=== PATIENT | male | born 1975 | race Caucasian/White ===

== ENCOUNTER 2024-12-31 11:07 | Inpatient (IN) | payer SELFPAY ==
[~2024-12-31] VITALS: Ht 182.9 cm; Wt 108.0 kg
[2024-12-31 11:37] LABS: IMMATURE GRANULOCYTE ABSOLUTE 0.06 K/uL (0-1); NUCLEATED RED BLOOD CELLS 0.0 % (0.0-0.19); PLATELET COUNT (AUTO) 226 K/uL (130-400); RED BLOOD CELL COUNT(AUTO) 5.77 MIL/uL (4.50-6.20); RED CELL DISTRIBUTION WIDTH 11.9 % (11.0-15.5); WHITE BLOOD COUNT (AUTO) 10.4 K/uL (4.8-10.8)
[2024-12-31 11:45] LABS: INR 1.03 (0.85-1.15)
--- NOTE | 2024-12-31 11:48 | HMCIMG ---
CHEST 1VW REASON: sob COMPARISON: None. FINDINGS: Single view of the chest was obtained. Lungs are clear. Heart size is normal. There is no pulmonary vascular congestion. Mediastinum and bony thorax appear unremarkable. IMPRESSION: 1. Normal single view chest x-ray.
[2024-12-31] MEDS: 0.9%NACL 1000ML 1,000 ML IV ONE (12:12)
[2024-12-31 12:39] LABS: CREATININE 1.2 mg/dL (0.5-1.3); GLOMERULAR FILTR. RATE CALC 74.0 mL/min (>90); GLUCOSE,RANDOM 140.0 mg/dL (70-105); SODIUM SERUM 139.0 mmol/L (136-145); UREA NITROGEN, BLOOD 12.0 mg/dL (7-18)
[2024-12-31 12:44] LABS: CREATINE KINASE, TOTAL 38.0 U/L (21-232)
--- NOTE | 2024-12-31 13:17 | ERN ---
General Chief Complaint: Shortness of Breath Stated Complaint: SOB Time Seen by MD: 11:22 Time Seen by Midlevel: 11:22 Source: patient History of Present Illness Initial Comments With the patient is a 49-year-old male with a past medical history of anxiety presenting to the emergency department for evaluation of shortness of the breath that has been ongoing for the last several days. Symptoms are worse when he lies flat. He also reports palpitations. Denies any history of atrial fibrillation, coronary artery disease, or hypertension. Allergies: Coded Allergies: Unable to Assess (Unverified Allergy, Unknown, 12/31/24) Past Medical History Past Medical History: No Pertinent History Past Surgical History: None ROS Dictation CONSTITUTIONAL: Negative except for HPI HEAD/FACE: Negative except for HPI EENT: Negative except for HPI RESPIRATORY: Negative except for HPI GASTROINTESTINAL/ABDOMINAL: Negative except for HPI GENITOURINARY: Negative except for HPI MUSCULOSKELETAL: Negative except for HPI INTEGUMENTARY: Negative except for HPI NEUROLOGICAL/PSYCH: Negative except for HPI HEMATOLOGIC/LYMPHATIC: Negative except for HPI All Systems Negative, Except as noted above. 13 point review of systems assessed and all negative except for above. Physical Exam Physical Exam Dictation Vital Signs reviewed General Appearance: Alert, oriented x 3, no acute distress, well developed, nourished. Head and Face: non-traumatic. Eyes: PERRL, pink conjunctivas, eyelid no trauma, anterior chamber with arcus senilis. Ears: Pinnas intact and no signs of trauma or erythema ear canals clear and no discharge TM no erythema Nose: No discharge, no bleeding. Oropharynx: Mouth normal, tongue pink, pharynx clear,no erythema, tonsils no exudates, no abscesses noted, mucous membrane moist Neck: Supple, non-tender, no thyromegaly, no masses, no JVD, no bruits Breast:Deferred Chest:No tenderness, no crepitus, no paradoxical movement, no retractions Lungs:Clear, well-ventilated, symmetric, no rales, no wheezing, no rhonchi, no stridor, good breath sounds bilaterally Heart: Irregularly irregular, no murmur, no gallops Vascular: no peripheral edema, Abdomen: Soft, positive bowel sounds, nondistended, no guarding, nontender, no rebound, no masses no hepatomegaly, no splenomegaly, no Mccarthy's sign, no hernias. Rectal: Deferred Genital: Deferred Neurological: Normal speech, motor function intact, sensory function intact Musculoskeletal: Neck nontender, full range of motion, back nontender, full range of motion, Extremities: nontender, full range of motion Skin: Color pink, dry, no turgor, no rash, no lacerations, no abrasions, no contusions. Lymphatic: Deferred Results Laboratory and Microbiology Lab and Micro Result Laboratory Tests Test 12/31/24 11:25 White Blood Count 10.4 K/uL (4.8-10.8) Red Blood Count 5.77 MIL/uL (4.50-6.20) Hemoglobin 19.2 g/dL (14.0-18.0) H Hematocrit 53.6 % (42-54) Mean Corpuscular Volume 92.9 fL (79-99) Mean Corpuscular Hemoglobin 33.3 pg (27.0-33.0) H Mean Corpuscular Hemoglobin Concent 35.8 g/dL (32.0-36.0) Red Cell Distribution Width 11.9 % (11.0-15.5) Platelet Count 226 K/uL (130-400) Mean Platelet Volume 10.8 fL (7.5-10.5) H Immature Granulocyte % (Auto) 0.6 % (0-1) Neutrophils (%) (Auto) 65.2 % (40.0-77.0) Lymphocytes (%) (Auto) 21.8 % (21.0-51.0) Monocytes (%) (Auto) 9.8 % (3.0-13.0) Eosinophils (%) (Auto) 1.4 % (0.0-8.0) Basophils (%) (Auto) 1.2 % (0.0-5.0) Neutrophils # (Auto) 6.8 K/uL (1.8-7.7) Lymphocytes # (Auto) 2.3 K/uL (1.0-4.8) Monocytes # (Auto) 1.0 K/uL (0.1-1.0) Eosinophils # (Auto) 0.15 K/uL (0.00-0.70) Basophils # (Auto) 0.12 K/uL (0.00-0.20) Absolute Immature Granulocyte (auto 0.06 K/uL (0-1) Nucleated Red Blood Cells 0.0 % (0.0-0.19) Prothrombin Time 10.9 SEC (9.6-11.6) Prothromb Time International Ratio 1.03 (0.85-1.15) Activated Partial Thromboplast Time 27.1 SEC (26.3-35.5) Sodium Level 139 mmol/L (136-145) Potassium Level 3.8 mmol/L (3.5-5.1) Chloride Level 102 mmol/L (101-111) Carbon Dioxide Level 27 mmol/L (21-32) Blood Urea Nitrogen 12 mg/dL (7-18) Creatinine 1.2 mg/dL (0.5-1.3) Glomerular Filtration Rate Calc 74 mL/min (>90) Random Glucose 140 mg/dL (70-105) H Total Calcium 8.9 mg/dL (8.5-10.1) Magnesium Level 2.20 mg/dL (1.80-2.40) Total Creatine Kinase 38 U/L (21-232) Troponin I High Sensitivity 105 ng/L (4-75) *H B-Type Natriuretic Peptide 422 pg/mL (0-100) H Labs Reviewed?: Yes MDM MDM: Differential diagnosis: Acute coronary syndrome, pulmonary edema, fluid overload Rationale: Tests considered and ordered secondary to shared decision making include: Previous outside records reviewed: Old ER visits. Risk of complication and/or morbidity or mortality of patient management: None Medications-Per medication reconciliation Need for hospitalization: Patient does meet criteria for hospitalization. Need for emergency major/minor surgery: No There are no social concerns with this patient. Prescription drug management Prescriptions will include symptomatic care Patient's prior external medical records from other ER visits were reviewed by me as indicated. Prior testing and results from previous visits were reviewed. Prior tests were taken into account with medical decision making and resource utilization, independent historian/historians were used to obtain complete medical history. I independently interpreted the test that were performed, results were reviewed by me and considered findings on radiology if ordered. Medical management and examination interpretation discussions were had by me with other qualified healthcare professionals as indicated for the patient's care. ED Course Orders Procedure Category Date Status Time 12 Lead Ekg Tracing- EKG 12/31/24 Complete Technical 11:21 Cbc With Differential LAB 12/31/24 Complete 11:21 Basic Metabolic Panel LAB 12/31/24 Complete 11:21 B-Type Natriuretic LAB 12/31/24 Complete Peptide 11:21 Creatine Kinase, Total LAB 12/31/24 Complete 11:21 Magnesium LAB 12/31/24 Complete 11:21 Troponin I High LAB 12/31/24 Complete Sensitivity 11:21 Pt And Ptt LAB 12/31/24 Complete 11:21 Chest 1vw RAD 12/31/24 Resulted 11:21 Metoprolol Tartrate PHA 12/31/24 Complete (Lopressor) 12:00 0.9%Nacl 1000ml (Ns PHA 12/31/24 Complete 1000ml) 12:00 Aspirin 325mg Tab PHA 12/31/24 Complete (Aspirin 325mg Tab) 13:00 Current Medications Medications (Trade) Dose Ordered Sig/Nallely Route PRN Reason Start Time Stop Time Status Last Admin Dose Admin Aspirin (Aspirin 325mg Tab) 325 mg ONCE ONCE PO 12/31/24 13:00 12/31/24 13:01 DC Metoprolol Tartrate (loprESSOR) 5 mg ONCE ONCE IV 12/31/24 12:00 12/31/24 12:01 DC 12/31/24 12:12 Sodium Chloride 1,000 ml @ 0 mls/hr ONCE ONCE IV 12/31/24 12:00 12/31/24 12:01 DC 12/31/24 12:12 Vital Signs Date Time Temp Pulse Resp B/P (MAP) Pulse Ox O2 Delivery O2 Flow Rate FiO2 12/31/24 14:00 103 20 116/58 98 Room Air* 0 12/31/24 12:12 135 127/98 12/31/24 11:29 75 20 133/77 98 Room Air* 0 12/31/24 11:10 98.1 69 18 155/92 95 [place] [id number] IMAGING REPORT Signed PATIENT: MERCY PIERSON MR#: [id number] : 1975 SEX: M AGE: 49 LOCATION: [facility] ORDER 22 STATUS: REG ER REPORT#: [id number] SERVICE 112 REASON: sob ORDERING PHYSICIAN: CRYSTAL MCGREGOR PROCEDURE: CXR1VW - CHEST 1VW CHEST 1VW REASON: sob COMPARISON: None. FINDINGS: Single view of the chest was obtained. Lungs are clear. Heart size is normal. There is no pulmonary vascular congestion. Mediastinum and bony thorax appear unremarkable. IMPRESSION: 1. Normal single view chest x-ray. DICTATED BY: ELLIOT FLOOD MD DATE: 12/31/24 114 ELECTRONICALLY SIGNED BY: ELLIOT FLOOD MD DATE: 12/31/24 1148 HEART Score Response (Comments) Value History: Low suspicion (0) 0 EKG: Normal 0 Age: 45-65yrs (+1) 1 Risk Factors: No known risk factors (0) 0 Initial Troponin: Normal limit (0) 0 HEART Score Risk: Low Risk for MACE (1-3) Total 1 DX & DISP Disposition: Inpatient Departure Impression: Primary Impression: New onset a-fib Additional Impression: Atrial fibrillation with RVR Condition: Stable Referrals: SELF,REFERRAL (PCP) I have reviewed the case, and I agree with, Diagnosis and Plan I performed the substantive portion of the visit. I have reviewed and personally made and approve the management plan that is documented in the note by myself or the MIREILLE. I acknowledge for responsibility for the patient's management plan. CRYSTAL MCGREGOR Dec 31, 2024 13:17
--- NOTE | 2024-12-31 14:02 | EKG ---
[facility] Test Date: 2024-12-31 Test Time: 11:37:38 Pat Name: MERCY PIERSON Department: ED Room: 221 Gender: M Manager Erp: [id number] : 1975 Requested By: CRYSTAL MCGREGOR Order Number: [id number] Reading MD: Trent Jenkins Measurements Intervals [place] Rate: 136 P: 0 AR: 0 QRS: -68 QRSD: 93 T: 0 QT: 339 QTc: 510 Interpretive Statements Atrial fibrillation Inferior infarct, old Prolonged QT interval No previous ECG available for comparison Electronically Signed On 01-01-2025 02:17:55 CDT by Trent Jenkins Please click the below link to view image of tracing.
[2024-12-31] MEDS: ASPIRIN 325MG TAB PO ONE (14:27)
[2024-12-31] MEDS ORDERED: PHARMACY COMMUNICATION MISC PRN (14:30)
[2024-12-31 15:26] LABS: AMPHET/METH SCREEN,URINE NEGATIVE (NEGATIVE); BARBITURATE SCREEN, URINE NEGATIVE (NEGATIVE); CANNABINOID SCREEN,URINE POSITIVE (NEGATIVE); COCAINE SCREEN,URINE POSITIVE (NEGATIVE)
[2024-12-31] MEDS: PoTASSium chloRIDE 20MEQ ER 20 MEQ ERTAB PO SCH (15:30)
--- NOTE | 2024-12-31 15:38 | CONS ---
[facility] CONSULTATION REPORT Date Patient Seen: Dec 31, 2024 Time of Visit: 15:14 Requesting Physician: Shabbir Crowder MD Reason for Consultation: Afib RVR History of Present Illness: This is a 49-year-old white male with a past medical history of alcohol abuse, tobacco abuse and marijuana use, probable sleep apnea and otherwise no other medical history (no outpatient PCP and takes only vitamin supplements), presented to the emergency department with a 1 day history of palpitations with associated orthopnea, PND, mild dyspnea and anxiety. 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 Throughout the night, he had difficulties sleeping due to his symptoms. In the morning, he noted that he was having palpitations and worsening anxiety. He took an aspirin and a calming supplement without any improvement in his symptoms, symptoms persisted throughout the day. He decided to present to the emergency department earlier this morning due to persistent symptoms. In the emergency department, he was found to be in atrial fibrillation with rapid ventricular response rate of 136 beats per minute and evidence of possible prior old inferior infarct with QS complexes in leads 3 and AVF. He admits to heavy alcohol use, difficulty quantifying other than a lot. On 12/29/2024 he admits to drinking about 5 beers throughout the day and 1 glass of whiskey. He denies any cocaine use and although he does occasionally use marijuana, he has not use marijuana recently. In the emergency department, Labs were remarkable for a WBC of 10.4, hemoglobin 19.2, hematocrit of 53.6 and a platelet count of 226. D-dimer normal at 456, sodium 139, potassium 3.8, BUN 12 and creatinine of 1.2, magnesium of 2.2. BNP of 422, I initial high sensitivity cardiac troponin of 105, hemoglobin A1c of 7.2. His chest x-ray demonstrated borderline cardiomegaly and pulmonary vascular congestion changes. Past Medical History: Alcohol abuse Tobacco abuse Intermittent marijuana use Past Surgical History: None Family History: Unknown Social History: Patient is , lives alone. Has been independent Habits: Longstanding tobacco use since age 15 currently 1 pack per day Admits to consuming alcohol beer and whiskey, difficult to quantify only reporting drinks a lot Occasional marijuana use and denies cocaine use Home Meds: No prescription drugs Takes PPI, multivitamin men's 50+, [place] 3 and turmeric Review of Systems: CONST: No fever, fatigue, or weight changes. EYES: No recent vision problems. ENT: No congestion, ear pain, or sore throat. C/V: Palpitations, orthopnea, PND. Dyspnea. No chest pain. RESP: No cough, congestion, wheezing or shortness of breath. GI: No abdominal pain, nausea, vomiting, constipation, or diarrhea. : No incontinence or dysuria. SKIN: No rash. NEURO: No headache, focal numbness or weakness, dizziness, or seizures. PSYCH: No history of depression or anxiety HEME: No abnormal bruising or bleeding. LYMPH: No swollen glands. Physical Examination: GENERAL: No acute distress. HEAD: Normal with no signs of head trauma. EYES: PERRLA, EOMI, conjunctiva and sclera normal. ENT: Hearing grossly intact, normal oropharynx. NECK: Supple without JVD. There is no tenderness, lymphadenopathy, or masses. No thyromegaly. Normal carotid upstrokes without bruits. LUNGS: Clear breath sounds bilaterally. No wheezes, or rhonchi. HEART: Irregularly irregular underlying rhythm with moderate to rapid ventricular response of atrial fibrillation. Normal S1 and S2 without murmurs, gallop or rub. VASC: Peripheral pulses +2 bilaterally. ABD: Bowel sounds normal, soft, nontender, no masses, no organomegaly. No audible bruits. : Not examined LYMPH: No lymphadenopathy noted. EXT: No clubbing, cyanosis or edema. SKIN: No rashes or lesions noted. NEURO: Awake, alert, and oriented x3. No focal sensory or strength deficits noted. Vital Signs (last 8hr) Date Time Temp Pulse Resp B/P (MAP) Pulse Ox O2 Delivery O2 Flow Rate FiO2 12/31/24 14:00 103 20 116/58 98 Room Air* 0 21 12/31/24 12:12 135 127/98 12/31/24 11:29 75 20 133/77 98 Room Air* 0 21 12/31/24 11:10 98.1 69 18 155/92 95 Room Air Laboratory: Hematology Labs: Test 12/31/24 11:25 Range/Units White Blood Count 10.4 4.8-10.8 K/uL Red Blood Count 5.77 4.50-6.20 MIL/uL Hemoglobin 19.2 H 14.0-18.0 g/dL Hematocrit 53.6 42-54 % Mean Corpuscular Volume 92.9 79-99 fL Mean Corpuscular Hemoglobin 33.3 H 27.0-33.0 pg Mean Corpuscular Hemoglobin Concent 35.8 32.0-36.0 g/dL Red Cell Distribution Width 11.9 11.0-15.5 % Platelet Count 226 130-400 K/uL Mean Platelet Volume 10.8 H 7.5-10.5 fL Immature Granulocyte % (Auto) 0.6 0-1 % Neutrophils (%) (Auto) 65.2 40.0-77.0 % Lymphocytes (%) (Auto) 21.8 21.0-51.0 % Monocytes (%) (Auto) 9.8 3.0-13.0 % Eosinophils (%) (Auto) 1.4 0.0-8.0 % Basophils (%) (Auto) 1.2 0.0-5.0 % Neutrophils # (Auto) 6.8 1.8-7.7 K/uL Lymphocytes # (Auto) 2.3 1.0-4.8 K/uL Monocytes # (Auto) 1.0 0.1-1.0 K/uL Eosinophils # (Auto) 0.15 0.00-0.70 K/uL Basophils # (Auto) 0.12 0.00-0.20 K/uL Absolute Immature Granulocyte (auto 0.06 0-1 K/uL Nucleated Red Blood Cells 0.0 0.0-0.19 % Chemistry Labs: Test 12/31/24 11:25 Range/Units Sodium Level 139 136-145 mmol/L Potassium Level 3.8 3.5-5.1 mmol/L Chloride Level 102 101-111 mmol/L Carbon Dioxide Level 27 21-32 mmol/L Blood Urea Nitrogen 12 7-18 mg/dL Creatinine 1.2 0.5-1.3 mg/dL Glomerular Filtration Rate Calc 74 >90 mL/min Random Glucose 140 H 70-105 mg/dL Hemoglobin A1c 7.2 H 4.0-6.0 % Estimated Average Glucose (eAG) 160 H 70-126 mg/dL Total Calcium 8.9 8.5-10.1 mg/dL Magnesium Level 2.20 1.80-2.40 mg/dL Total Creatine Kinase 38 21-232 U/L Troponin I High Sensitivity 105 *H 4-75 ng/L B-Type Natriuretic Peptide 422 H 0-100 pg/mL Procalcitonin < 0.05 L 0.05-0.5 ng/mL Coagulation Labs: Test 12/31/24 11:25 Range/Units Prothrombin Time 10.9 9.6-11.6 SEC Prothromb Time International Ratio 1.03 0.85-1.15 Activated Partial Thromboplast Time 27.1 26.3-35.5 SEC D-Dimer Quantitative (PE/DVT) 456 0-500 ng/mL Diagnostics / Radiology: Admission chest x-ray demonstrates borderline cardiomegaly and pulmonary vascular congestion changes 2D echocardiogram is pending Impression and Plan: New onset Atrial fibrillation with rapid ventricular response: Consider "Holiday heart syndrome" in this patient with heavy EtOH abuse [id number] stroke risk score of 1 (diabetes newly diagnosed): -continue with metoprolol tartrate 25 mg p.o. t.i.d. (chronic beta-blake therapy is generally considered safe in patients who are chronic cocaine abuser as particularly those with heart failure with multiple study showing no increase in adverse cardiovascular outcomes. Avoid beta-blockers in the setting of acute cocaine intoxication due to the risk of unopposed alpha adrenergic stimulation and coronary vasospasm) -continue aspirin 81 mg p.o. daily -await results of 2D echocardiogram -patient does report prior history of loud snoring and apnea consistent with sleep apnea and will need further evaluation as an outpatient Acute presumed HFpEF: Elevated troponin to 105 in the setting of AFib with RVR and acute HFpEF: -begin furosemide 20 mg IV q.12 with potassium supplementation -begin metoprolol tartrate 25 mg p.o. t.i.d. for rate control of his atrial fibrillation -follow-up on 2D echocardiogram results and repeat troponin Alcohol abuse, tobacco abuse and intermittent marijuana use: -possible alcohol-related atrial fibrillation -await results of 2D echocardiogram -he has been counseled on efforts at reducing his alcohol use and smoking c essation -toxicology is pending Probable sleep apnea: -we will require outpatient assessment and follow-up Type 2 diabetes mellitus, new diagnosis: -hemoglobin A1c of 7.2 -management per medical team and will need outpatient follow-up PHYSICIAN ATTESTATION OF PHYSICIAN RUG SHAMPOOER DOCUMENTATION: I attest that I was physically present for the lauren portions of the service and evaluated the patient with the Physician Visual Inspector, and I reviewed and discussed the case with the Physician Visual Inspector and made modifications to the Physician Visual Inspector's findings and plans of care as documented above KENNA FLOOD Dec 31, 2024 15:38 CAROL FERRARO MD Dec 31, 2024 18:20
[2024-12-31] MEDS: THIAMINE HCL 100 MG, FOLic ACID 5 MG/ML VIAL 1 MG, M.V.I. IV [ADULT] 10 ML in 0.9%NACL ... IV SCH (15:43)
--- NOTE | 2024-12-31 15:44 | HP ---
[facility] HISTORY AND PHYSICAL Date of Service: Dec 31, 2024 Time of Service: 15:43 HISTORY OF PRESENT ILLNESS: 49-year-old male with no significant past medical history presented to the hospital secondary to shortness of breath and palpitations. Patient states for the past few days he has noted that he has been having palpitations at home. He also feels short of breath while lying flat at home. He has associated orthopnea, PND at home. He feels anxious at home. Denies any history of DVT, PE in the past. Denies any chest pain at rest or with exertion, fever, chills, cough, sputum production. He currently does not take any medications at home. He does drink one bottle of whiskey every day and also has been smoking a pack a day for at least five years. Denies any falls, syncopal episode. Denied any lower extremity edema, recent weight changes. States he has episodes of mild depression which he has been self treating at home. Denies any suicidal or homicidal ideation. He currently does not want to see a psychiatrist while inpatient. Labs were notable for white count of 10.4, hemoglobin was 19.2, platelet count was 226 K, sodium was 139, potassium was 3.8, creatinine was 1.2, BNP with 422 chest x-ray showed no acute infiltrates Patient on presentation was noted to have AFib RVR with heart rate in the 120s and 130s. Patient was given one dose of IV metoprolol 5 mg. When seen at bedside patient's heart rate is in the 120s. REVIEW OF SYSTEMS CONSTITUTIONAL: Denies fevers, chills, or night sweats. No unintentional weight loss reported. NEUROLOGICAL: Denies headache, amaurosis fugax, motor weakness, sensory deficit, vertigo/spinning sensation, gait abnormalities, or tremors. ENT: No hearing loss, otalgia, otorrhea, rhinitis, rhinorrhea, hoarseness, or sore throat. CARDIOVASCULAR: Denied any chest pain. Positive for orthopnea, PND. PULMONARY: Shortness of breaths. Denied any cough, sputum production per hour hemoptysis GASTROINTESTINAL: Denies any type of dysphagia to either liquids or solids. Denies nausea, vomiting, pyrosis, early satiety, abdominal pain, diarrhea, constipation, or changes in stool consistency or caliber. Denies coffee-ground emesis, hematemesis, hematochezia, or melanotic stools. GENITOURINARY: Denies frequency, urgency, nocturia, hematuria or incontinence (Storage/Irritative symptoms.) Low urinary stream, straining to void, urinary intermittency or hesitancy, splitting of the voiding stream, terminal dribbling. ENDOCRINOLOGIC: Denies polyuria, polydipsia, polyphagia or heat/cold intolerances. HEMATOLOGIC: Denies thrombophilia/previous clots, or coagulopathy/bleeding disorders. ONCOLOGIC: Denies personal history of malignancy. DERMATOLOGIC: Denies rashes or pruritus. PSYCHIATRIC: Denies any suicidal or homicidal ideation. Denies hallucinations. PAST MEDICAL HISTORY: No significant past medical history PAST SURGICAL HISTORY: Denied any surgical history PAST SOCIAL HISTORY: Smokes one pack of cigarette per day for at least five years. Also drinks whiskey and beer almost daily. Denied any drug use FAMILY HISTORY: Denied any pertinent family history Coded Allergies: Unable to Assess (Unverified Allergy, Unknown, 12/31/24) PHYSICAL EXAM GENERAL APPEARANCE: The patient is awake, alert, and oriented, in no acute cardiopulmonary distress. NEUROLOGICAL: Cranial nerves II-XII grossly intact. Motor is 5/5 in bilateral upper and lower extremities proximal to distal. No sensory deficits. HEENT: Face is symmetric. Pupils are equal and reactive. Extraocular movements are intact. NECK: Supple. No JVD. No thyromegaly. No submental, submandibular, pre- /postauricular, occipital or supraclavicular lymphadenopathy. CHEST: Normal chest expansion. No Telemetry. LUNGS: Absence of any rales, rhonchi or any wheezing. CARDIOVASCULAR: Irregularly irregular rhythm. S1 and S2 normal. No appreciable rubs, murmurs or gallops. ABDOMEN: Soft, nontender, and nondistended. There is no rebound, voluntary guarding, or rigidity. : Deferred. No Jimenez. EXTREMITIES: Non-edematous and not cyanotic. No clubbing. Good capillary refill. SKIN: No skin breakdown. Vital Sign (Last 24 Hours) 12/31/24 12/31/24 11:10 14:00 Temp 98.1 Pulse 103 Resp 20 B/P (MAP) 116/58 Pulse Ox 98 O2 Delivery Room Air* O2 Flow Rate 0 FiO2 21 LABS: Laboratory: Test 12/31/24 15:11 12/31/24 11:25 Range/Units Urine Opiates Screen NEGATIVE NEGATIVE Urine Barbiturates Screen NEGATIVE NEGATIVE Urine Phencyclidine Screen NEGATIVE NEGATIVE Urine Amphetamines Screen NEGATIVE NEGATIVE Urine Benzodiazepines Screen NEGATIVE NEGATIVE Urine Cocaine Screen POSITIVE H NEGATIVE Urine Marijuana (THC) Screen POSITIVE H NEGATIVE White Blood Count 10.4 4.8-10.8 K/uL Red Blood Count 5.77 4.50-6.20 MIL/uL Hemoglobin 19.2 H 14.0-18.0 g/dL Hematocrit 53.6 42-54 % Mean Corpuscular Volume 92.9 79-99 fL Mean Corpuscular Hemoglobin 33.3 H 27.0-33.0 pg Mean Corpuscular Hemoglobin Concent 35.8 32.0-36.0 g/dL Red Cell Distribution Width 11.9 11.0-15.5 % Platelet Count 226 130-400 K/uL Mean Platelet Volume 10.8 H 7.5-10.5 fL Immature Granulocyte % (Auto) 0.6 0-1 % Neutrophils (%) (Auto) 65.2 40.0-77.0 % Lymphocytes (%) (Auto) 21.8 21.0-51.0 % Monocytes (%) (Auto) 9.8 3.0-13.0 % Eosinophils (%) (Auto) 1.4 0.0-8.0 % Basophils (%) (Auto) 1.2 0.0-5.0 % Neutrophils # (Auto) 6.8 1.8-7.7 K/uL Lymphocytes # (Auto) 2.3 1.0-4.8 K/uL Monocytes # (Auto) 1.0 0.1-1.0 K/uL Eosinophils # (Auto) 0.15 0.00-0.70 K/uL Basophils # (Auto) 0.12 0.00-0.20 K/uL Absolute Immature Granulocyte (auto 0.06 0-1 K/uL Nucleated Red Blood Cells 0.0 0.0-0.19 % Prothrombin Time 10.9 9.6-11.6 SEC Prothromb Time International Ratio 1.03 0.85-1.15 Activated Partial Thromboplast Time 27.1 26.3-35.5 SEC D-Dimer Quantitative (PE/DVT) 456 0-500 ng/mL Sodium Level 139 136-145 mmol/L Potassium Level 3.8 3.5-5.1 mmol/L Chloride Level 102 101-111 mmol/L Carbon Dioxide Level 27 21-32 mmol/L Blood Urea Nitrogen 12 7-18 mg/dL Creatinine 1.2 0.5-1.3 mg/dL Glomerular Filtration Rate Calc 74 >90 mL/min Random Glucose 140 H 70-105 mg/dL Hemoglobin A1c 7.2 H 4.0-6.0 % Estimated Average Glucose (eAG) 160 H 70-126 mg/dL Total Calcium 8.9 8.5-10.1 mg/dL Magnesium Level 2.20 1.80-2.40 mg/dL Total Creatine Kinase 38 21-232 U/L Troponin I High Sensitivity 105 *H 4-75 ng/L B-Type Natriuretic Peptide 422 H 0-100 pg/mL Procalcitonin < 0.05 L 0.05-0.5 ng/mL Thyroid Stimulating Hormone (TSH) 5.18 H 0.36-3.74 uIU/mL Serum Alcohol < 3 0-10 mg/dL Current Medications Medications (Trade) Dose Ordered Sig/Nallely Route PRN Reason Start Time Stop Time Status Last Admin Dose Admin Chlordiazepoxide HCl (LIBrium 25 MG CAP) 25 mg Q4H PRN PO ALCOHOL WITHDRAWAL PROTOCOL 12/31/24 14:30 01/07/25 14:29 Diazepam (VALium 5 MG/ML 2 ML SYG) 5 mg Q4H PRN IVP ALCOHOL WITHDRAWAL PROTOCOL 12/31/24 14:30 01/07/25 14:29 Famotidine (Pepcid 20mg Vial) 20 mg BID IV 12/31/24 21:00 01/30/25 20:59 Furosemide (LASix 20MG VIAL) 20 mg Q12H IV 12/31/24 15:30 01/30/25 15:29 Metoprolol Tartrate (loprESSOR) 25 mg TID PO 12/31/24 14:30 01/30/25 14:29 12/31/24 14:57 25 MG Pharmacy Profile Note (Pharmacy Communication) 1 each PROTOCOL PRN MISC ETOH Withdrawal Score changes 12/31/24 14:30 01/07/25 14:29 Potassium Chloride (K-Dur/Klor-Con 20meq) 20 meq BID PO 12/31/24 15:30 01/30/25 15:29 Thiamine HCl 100 mg/Folic Acid 1 mg/Multivitamins/ Minerals 10 ml/ Sodium Chloride 1,011.2 ml @ 100 mls/ hr Q24H IV 12/31/24 14:30 01/03/25 00:37 12/31/24 15:43 100 MLS/HR DIAGNOSTICS / RADIOLOGY: Chest x-ray showed no acute infiltrates ASSESSMENT: Paroxysmal AFib with RVR POA Alcohol abuse Tobacco abuse Suspected acute CHF exacerbation likely in setting of AFib RVR Mild troponin elevation likely in setting of type 2 PR from AFib RVR Positive cocaine and marijuana in urine drug screen Polycythemia PLAN: - patient to be admitted to [facility] -in reference to AFib RVR. Patient will be started on metoprolol 25 mg t.i.d.. We will request consultation with Cardiology. We will obtain echocardiogram. Patient was counseled regarding alcohol and smoking cessation. Also obtain a D- dimer. If elevated we will consider CT angiogram to rule out PE -patient will be started on CIWA protocol. Closely monitor for alcohol withdrawals. -keep potassium greater than four and magnesium greater than two -check peripheral smear. Obtain a CBC for tomorrow. Likely in setting of smoki ng. If hemoglobin remains had related we will consider Hematology consultation. - the orders per hospitalization course Advanced Care Planning Which of the following were discussed: Hospice care: Yes __ No _x_ Therapeutic options: Yes __ No __ Advance directives: Yes __ No __ Other discussions: Discussed with who?: patient (Patient, family or surrogates) Voluntary nature of this service was explained to the patient? Yes _x_ No __ Amount of time spent: 25 minutes BERNARDINO Vega MD, MD Dec 31, 2024 15:43
[2024-12-31 18:30] VITALS: BP 114/60; PULSE 69; RESP 18; TEMP 97
[2024-12-31 18:44] VITALS: O2SAT 97
[2024-12-31 21:00] VITALS: O2SAT 98
[2024-12-31] MEDS: FAMOTIDINE 20MG VIAL IV SCH (21:55)
[2024-12-31 23:14] VITALS: BP 135/96; PULSE 60; RESP 18; TEMP 98.1
[2025-01-01] VITALS (7 sets, daily range): BP systolic 112–140; BP diastolic 80–98; PULSE 62–123; RESP 18–19; TEMP 97.7–98.8; O2SAT 97–98
[2025-01-01 05:09] LABS: NUCLEATED RED BLOOD CELLS 0.0 % (0.0-0.19); PLATELET COUNT (AUTO) 183.0 K/uL (130-400); RED BLOOD CELL COUNT(AUTO) 4.95 MIL/uL (4.50-6.20); RED CELL DISTRIBUTION WIDTH 11.9 % (11.0-15.5); WHITE BLOOD COUNT (AUTO) 8.2 K/uL (4.8-10.8)
[2025-01-01 05:28] LABS: ASPARTATE AMINOTRANSFERASE 44.0 U/L (10-37); CREATININE 1.2 mg/dL (0.5-1.3); GLOMERULAR FILTR. RATE CALC 74.0 mL/min (>90); GLUCOSE,RANDOM 120.0 mg/dL (70-105); SODIUM SERUM 140.0 mmol/L (136-145); TOTAL PROTEIN, SERUM 6.3 g/dL (6.0-8.3); UREA NITROGEN, BLOOD 19.0 mg/dL (7-18)
--- NOTE | 2025-01-01 08:56 | PN ---
[facility] PROGRESS NOTE Date of Service: Jan 01, 2025 Time of Service: 08:36 SUBJECTIVE: This is a 49-year-old white male with a history of alcohol abuse, tobacco abuse, probable sleep apnea, and occasional marijuana use, but otherwise without significant past medical history or a primary care provider. He presents with complaints of palpitations, shortness of breath, orthopnea, paroxysmal nocturnal dyspnea (PND), and anxiety. 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 He was unable to sleep throughout the night due to these symptoms. In the morning, the palpitations and anxiety persisted, and he attempted self-treatment with aspirin and a calming supplement, but symptoms did not improve. He decided to present to the emergency department due to persistence of symptoms. He denies chest pain at rest or with exertion, fever, chills, cough, sputum production, lower extremity edema, weight changes, syncope, or recent falls. He denies any personal history of DVT or PE. He reports drinking alcohol daily, typically one bottle of whiskey, though on 12/29/2024 he states he consumed about 5 beers and 1 glass of whiskey. He smokes about one pack of cigarettes daily for at least the past five years and occasionally uses marijuana, though not recently. He denies cocaine use. He does not take any prescribed medications, only vitamin supplements. He endorses episodes of mild depression, which he self-treats at home, but denies suicidal or homicidal ideation. He does not wish to see a psychiatrist while inpatient. 01.01.2025: The patient was seen and evaluated in room 221. He initially expressed a desire to leave, stating that there was no proper communication and he was unsure about what was happening. The patient reports that he did not sleep until 5 a.m. and has been feeling anxious. On examination, there was no lower extremity edema. The patient was evaluated for signs of alcohol withdrawal, including tremors, agitation, sweating, nausea, vomiting, and visual or tactile disturbances. No signs were observed, and the patient denied these symptoms. Anxiety was present. We clearly explained the plan to the patient, including the need for further imaging (echocardiogram) and checking thyroid levels (T3 and T4) given a TSH of 5.18. The patient understood the plan, agreed to stay, and the CIWA score was 1. We will follow up with cardiology for further evaluation and continue to follow up with all pending results. REVIEW OF SYSTEMS CONSTITUTIONAL: Denies fevers, chills, or night sweats. No unintentional weight loss reported. NEUROLOGICAL: Denies headache, amaurosis fugax, motor weakness, sensory deficit, vertigo/spinning sensation, gait abnormalities, or tremors. ENT: No hearing loss, otalgia, otorrhea, rhinitis, rhinorrhea, hoarseness, or sore throat. CARDIOVASCULAR: Denied any chest pain. Positive for orthopnea, PND. PULMONARY: Shortness of breaths. Denied any cough, sputum production per hour hemoptysis GASTROINTESTINAL: Denies any type of dysphagia to either liquids or solids. Denies nausea, vomiting, pyrosis, early satiety, abdominal pain, diarrhea, constipation, or changes in stool consistency or caliber. Denies coffee-ground emesis, hematemesis, hematochezia, or melanotic stools. GENITOURINARY: Denies frequency, urgency, nocturia, hematuria or incontinence (Storage/Irritative symptoms.) Low urinary stream, straining to void, urinary intermittency or hesitancy, splitting of the voiding stream, terminal dribbling. ENDOCRINOLOGIC: Denies polyuria, polydipsia, polyphagia or heat/cold intolerances. HEMATOLOGIC: Denies thrombophilia/previous clots, or coagulopathy/bleeding disorders. ONCOLOGIC: Denies personal history of malignancy. DERMATOLOGIC: Denies rashes or pruritus. PSYCHIATRIC: Denies any suicidal or homicidal ideation. Denies hallucinations. PHYSICAL EXAM GENERAL APPEARANCE: The patient is awake, alert, and oriented, in no acute cardiopulmonary distress. NEUROLOGICAL: Motor is 5/5 in bilateral upper and lower extremities proximal to distal. No sensory deficits. HEENT: Face is symmetric. Pupils are equal and reactive. Extraocular movements are intact. NECK: Supple. No thyromegaly. No submental, submandibular, pre-/postauricular, occipital or supraclavicular lymphadenopathy. CHEST: Normal chest expansion. No Telemetry. LUNGS: Absence of any rales, rhonchi or any wheezing. CARDIOVASCULAR: Irregularly irregular rhythm. S1 and S2 normal. No appreciable rubs, murmurs or gallops. ABDOMEN: Soft, nontender, and nondistended. There is no rebound, voluntary guarding, or rigidity. : Deferred. No Jimenez. EXTREMITIES: Non-edematous and not cyanotic. No clubbing. Good capillary refill. SKIN: No skin breakdown. Vital Signs (last 8hr) Date Time Temp Pulse Resp B/P (MAP) Pulse Ox O2 Delivery O2 Flow Rate FiO2 01/01/25 03:56 98.2 106 18 119/86 97 Room Air LABS: Laboratory: Test 01/01/25 05:13 01/01/25 05:01 12/31/24 15:37 12/31/24 15:11 Range/Units Whole Blood Glucose 133 H 70-110 MG/DL White Blood Count 8.2 4.8-10.8 K/uL Red Blood Count 4.95 4.50-6.20 MIL/uL Hemoglobin 16.4 14.0-18.0 g/dL Hematocrit 46.6 42-54 % Mean Corpuscular Volume 94.1 79-99 fL Mean Corpuscular Hemoglobin 33.1 H 27.0-33.0 pg Mean Corpuscular Hemoglobin Concent 35.2 32.0-36.0 g/dL Red Cell Distribution Width 11.9 11.0-15.5 % Platelet Count 183 130-400 K/uL Mean Platelet Volume 11.2 H 7.5-10.5 fL Nucleated Red Blood Cells 0.0 0.0-0.19 % Sodium Level 140 136-145 mmol/L Potassium Level 3.9 3.5-5.1 mmol/L Chloride Level 103 101-111 mmol/L Carbon Dioxide Level 33 H 21-32 mmol/L Blood Urea Nitrogen 19 H 7-18 mg/dL Creatinine 1.2 0.5-1.3 mg/dL Glomerular Filtration Rate Calc 74 >90 mL/min Random Glucose 120 H 70-105 mg/dL Total Calcium 8.2 L 8.5-10.1 mg/dL Magnesium Level 2.20 1.80-2.40 mg/dL Total Bilirubin 0.6 0.2-1.0 mg/dL Aspartate Amino Transf (AST/SGOT) 44 H 10-37 U/L Alanine Aminotransferase (ALT/SGPT) 67 12-78 U/L Alkaline Phosphatase 82 50-136 U/L Total Protein 6.3 6.0-8.3 g/dL Albumin 3.2 L 3.5-5.0 g/dL Free Thyroxine (T4) Direct 1.03 0.76-1.46 ng/dL Free Triiodothyronine (T3) pg/mL 4.47 H 2.18-3.98 pg/mL Troponin I High Sensitivity 93 *H 4-75 ng/L Urine Opiates Screen NEGATIVE NEGATIVE Urine Barbiturates Screen NEGATIVE NEGATIVE Urine Phencyclidine Screen NEGATIVE NEGATIVE Urine Amphetamines Screen NEGATIVE NEGATIVE Urine Benzodiazepines Screen NEGATIVE NEGATIVE Urine Cocaine Screen POSITIVE H NEGATIVE Urine Marijuana (THC) Screen POSITIVE H NEGATIVE Test 12/31/24 11:25 Range/Units Immature Granulocyte % (Auto) 0.6 0-1 % Neutrophils (%) (Auto) 65.2 40.0-77.0 % Lymphocytes (%) (Auto) 21.8 21.0-51.0 % Monocytes (%) (Auto) 9.8 3.0-13.0 % Eosinophils (%) (Auto) 1.4 0.0-8.0 % Basophils (%) (Auto) 1.2 0.0-5.0 % Neutrophils # (Auto) 6.8 1.8-7.7 K/uL Lymphocytes # (Auto) 2.3 1.0-4.8 K/uL Monocytes # (Auto) 1.0 0.1-1.0 K/uL Eosinophils # (Auto) 0.15 0.00-0.70 K/uL Basophils # (Auto) 0.12 0.00-0.20 K/uL Absolute Immature Granulocyte (auto 0.06 0-1 K/uL Prothrombin Time 10.9 9.6-11.6 SEC Prothromb Time International Ratio 1.03 0.85-1.15 Activated Partial Thromboplast Time 27.1 26.3-35.5 SEC D-Dimer Quantitative (PE/DVT) 456 0-500 ng/mL Hemoglobin A1c 7.2 H 4.0-6.0 % Estimated Average Glucose (eAG) 160 H 70-126 mg/dL Total Creatine Kinase 38 21-232 U/L B-Type Natriuretic Peptide 422 H 0-100 pg/mL Procalcitonin < 0.05 L 0.05-0.5 ng/mL Thyroid Stimulating Hormone (TSH) 5.18 H 0.36-3.74 uIU/mL Serum Alcohol < 3 0-10 mg/dL Current Medications Medications (Trade) Dose Ordered Sig/Nallely Route PRN Reason Start Time Stop Time Status Last Admin Dose Admin Chlordiazepoxide HCl (LIBrium 25 MG CAP) 25 mg Q4H PRN PO ALCOHOL WITHDRAWAL PROTOCOL 12/31/24 14:30 01/07/25 14:29 12/31/24 21:54 25 MG Diazepam (VALium 5 MG/ML 2 ML SYG) 5 mg Q4H PRN IVP ALCOHOL WITHDRAWAL PROTOCOL 12/31/24 14:30 01/07/25 14:29 01/01/25 02:43 5 MG Famotidine (Pepcid 20mg Vial) 20 mg BID IV 12/31/24 21:00 01/30/25 20:59 01/01/25 08:10 20 MG Furosemide (LASix 20MG VIAL) 20 mg Q12H IV 12/31/24 15:30 01/30/25 15:29 01/01/25 02:33 20 MG Metoprolol Tartrate (loprESSOR) 25 mg TID PO 12/31/24 14:30 01/30/25 14:29 01/01/25 08:17 25 MG Pharmacy Profile Note (Pharmacy Communication) 1 each PROTOCOL PRN MISC ETOH Withdrawal Score changes 12/31/24 14:30 01/07/25 14:29 Potassium Chloride (K-Dur/Klor-Con 20meq) 20 meq BID PO 12/31/24 15:30 01/30/25 15:29 01/01/25 08:10 20 MEQ Thiamine HCl 100 mg/Folic Acid 1 mg/Multivitamins/ Minerals 10 ml/ Sodium Chloride 1,011.2 ml @ 100 mls/ hr Q24H IV 12/31/24 14:30 01/03/25 00:37 12/31/24 15:43 100 MLS/HR DIAGNOSTICS / RADIOLOGY: [place] [id number] [address] IMAGING REPORT Signed PATIENT: MERCY PIERSON MR#: [id number] : 1975 SEX: M AGE: 49 LOCATION: ED ORDER 1123 STATUS: REG ER REPORT#: [id number] SERVICE 1121 REASON: sob ORDERING PHYSICIAN: CRYSTAL MCGREGOR PROCEDURE: CXR1VW - CHEST 1VW CHEST 1VW REASON: sob COMPARISON: None. FINDINGS: Single view of the chest was obtained. Lungs are clear. Heart size is normal. There is no pulmonary vascular congestion. Mediastinum and bony thorax appear unremarkable. IMPRESSION: 1. Normal single view chest x-ray. DICTATED BY: ELLIOT FLOOD MD DATE: 12/31/24 114 ELECTRONICALLY SIGNED BY: ELLIOT FLOOD MD DATE: 12/31/24 1148 ASSESSMENT: Paroxysmal AFib with RVR POA Alcohol abuse Tobacco abuse Suspected acute CHF exacerbation likely in setting of AFib RVR Mild troponin elevation likely in setting of type 2 WI from AFib RVR Positive cocaine and marijuana in urine drug screen Polycythemia PLAN: Paroxysmal AFib with RVR POA - possible holiday heart syndrome Suspected acute CHF exacerbation likely in setting of AFib RVR, presumed HFpEF Mild troponin elevation likely in setting of type 2 WI from AFib RVR * started on metoprolol 25 mg t.i.d. and advanced to metoprolol tartrate to 50 mg p.o. b.i.d. as per cardiology(chronic beta-blake therapy is generally considered safe in patients who are chronic cocaine abuser as particularly those with heart failure with multiple study showing no increase in adverse cardiovascular outcomes. Avoid beta-blockers in the setting of acute cocaine intoxication due to the risk of unopposed alpha adrenergic stimulation and cor onary vasospasm) * Aspirin 81 mg p.o. daily * transitioned to furosemide 20 mg p.o. daily * consulted Cardiology. * IGNACIO VAS - 1 * 2D echocardiogram -report pending. * Mild troponin elevation (105) likely in setting of type 2 WI from AFib RVR * Will trend troponin - Trending down - 93 * BNP - 422 * D- Dimer- 456 - we will consider CT angiogram to rule out PE * Chest X- ray - normal on 12.31.2024 Alcohol abuse, Tobacco abuse * Patient was counseled regarding alcohol and smoking cessation. * CIWA score - 1 * patient is started on CIWA protocol. * Will closely monitor for alcohol withdrawals. * keep potassium greater than four and magnesium greater than two * potassium - 3.9 and magnesium - 2.2 * Electrolytes will be replenished as per protocol Positive cocaine and marijuana in urine drug screen * urine drug screen positive for cocaine and marijuana * will monitor Blood pressure , Heart rate and cardiac status * denied psychiatry evaluation * Counselled the patient to avoid cocaine and marijuana use and educated on health risks and legal implications. Subclinical hypothyroidism * TSH - 5.18 * Free T3 is 4.47, Free t4 - 1.03 * follow up with repeat blood works in 6-12 months on outpatient basis Suspected obstructive sleep apnea: * snoring and apnea consistent with sleep apnea * further evaluation as an outpatient Type 2 diabetes mellitus, new diagnosis: * hemoglobin A1c of 7.2 * outpatient follow-up ATTESTATION BY PHYSICIAN I have seen and examined the patient. I reviewed the documentation, medical decision making, and treatment plan as noted by the resident provider above. I agree with the findings and plan of care. Dipak Tavarez MD, LAKSHMI MD Jan 01, 2025 08:56
--- NOTE | 2025-01-01 09:16 | PN ---
[facility] CARDIOLOGY PROGRESS NOTE Date Patient Seen: Jan 01, 2025 Time of Visit: 09:12 Interval History: This is a 49-year-old white male with a past medical history of alcohol abuse, tobacco abuse and marijuana use, probable sleep apnea and otherwise no other medical history (no outpatient PCP and takes only vitamin supplements), presented to the emergency department with a 1 day history of palpitations with associated orthopnea, PND, mild dyspnea and anxiety. The patient reports that in the early intervention specialist hours of 12/30/2024 approximately 4-5 a.m., he noted palpitations with the associated orthopnea, PND, mild dyspnea and anxiety. Throughout the night, he had difficulties sleeping due to his symptoms. In the morning, he noted that he was having palpitations and worsening anxiety. He took an aspirin and a calming supplement without any improvement in his symptoms, symptoms persisted throughout the day. He decided to present to the emergency department earlier this morning due to persistent symptoms. In the emergency department, he was found to be in atrial fibrillation with rapid ventricular response rate of 136 beats per minute and evidence of possible prior old inferior infarct with QS complexes in leads 3 and AVF. He admits to heavy alcohol use, difficulty quantifying other than a lot. On 12/29/2024 he admits to drinking about 5 beers throughout the day and 1 glass of whiskey. He denies any cocaine use and although he does occasionally use marijuana, he has not use marijuana recently. In the emergency department, Labs were remarkable for a WBC of 10.4, hemoglobin 19.2, hematocrit of 53.6 and a platelet count of 226. D-dimer normal at 456, sodium 139, potassium 3.8, BUN 12 and creatinine of 1.2, magnesium of 2.2. BNP of 422, I initial high sensitivity cardiac troponin of 105, hemoglobin A1c of 7.2. His chest x-ray demonstrated borderline cardiomegaly and pulmonary vascula r congestion changes. Physical Examination: GENERAL: No acute distress. HEAD: Normal with no signs of head trauma. EYES: PERRLA, EOMI, conjunctiva and sclera normal. NECK: Supple without JVD. There is no tenderness, lymphadenopathy, or masses. No thyromegaly. Normal carotid upstrokes without bruits. LUNGS: Clear breath sounds bilaterally. No wheezes, or rhonchi. HEART: Irregularly irregular underlying rhythm with intermittent rapid heart rate. Normal S1 and S2 without murmurs, gallop or rub. VASC: Peripheral pulses +2 bilaterally. EXT: No clubbing, cyanosis or edema. NEURO: Awake, alert, and oriented x3. No focal neurological deficits noted. Laboratory: Hematology Labs: Test 01/01/25 05:01 12/31/24 11:25 Range/Units White Blood Count 8.2 4.8-10.8 K/uL Red Blood Count 4.95 4.50-6.20 MIL/uL Hemoglobin 16.4 14.0-18.0 g/dL Hematocrit 46.6 42-54 % Mean Corpuscular Volume 94.1 79-99 fL Mean Corpuscular Hemoglobin 33.1 H 27.0-33.0 pg Mean Corpuscular Hemoglobin Concent 35.2 32.0-36.0 g/dL Red Cell Distribution Width 11.9 11.0-15.5 % Platelet Count 183 130-400 K/uL Mean Platelet Volume 11.2 H 7.5-10.5 fL Nucleated Red Blood Cells 0.0 0.0-0.19 % Immature Granulocyte % (Auto) 0.6 0-1 % Neutrophils (%) (Auto) 65.2 40.0-77.0 % Lymphocytes (%) (Auto) 21.8 21.0-51.0 % Monocytes (%) (Auto) 9.8 3.0-13.0 % Eosinophils (%) (Auto) 1.4 0.0-8.0 % Basophils (%) (Auto) 1.2 0.0-5.0 % Neutrophils # (Auto) 6.8 1.8-7.7 K/uL Lymphocytes # (Auto) 2.3 1.0-4.8 K/uL Monocytes # (Auto) 1.0 0.1-1.0 K/uL Eosinophils # (Auto) 0.15 0.00-0.70 K/uL Basophils # (Auto) 0.12 0.00-0.20 K/uL Absolute Immature Granulocyte (auto 0.06 0-1 K/uL Chemistry Labs: Test 01/01/25 05:13 01/01/25 05:01 12/31/24 15:37 12/31/24 11:25 Range/Units Whole Blood Glucose 133 H 70-110 MG/DL Sodium Level 140 136-145 mmol/L Potassium Level 3.9 3.5-5.1 mmol/L Chloride Level 103 101-111 mmol/L Carbon Dioxide Level 33 H 21-32 mmol/L Blood Urea Nitrogen 19 H 7-18 mg/dL Creatinine 1.2 0.5-1.3 mg/dL Glomerular Filtration Rate Calc 74 >90 mL/min Random Glucose 120 H 70-105 mg/dL Total Calcium 8.2 L 8.5-10.1 mg/dL Magnesium Level 2.20 1.80-2.40 mg/dL Total Bilirubin 0.6 0.2-1.0 mg/dL Aspartate Amino Transf (AST/SGOT) 44 H 10-37 U/L Alanine Aminotransferase (ALT/SGPT) 67 12-78 U/L Alkaline Phosphatase 82 50-136 U/L Total Protein 6.3 6.0-8.3 g/dL Albumin 3.2 L 3.5-5.0 g/dL Free Thyroxine (T4) Direct 1.03 0.76-1.46 ng/dL Free Triiodothyronine (T3) pg/mL 4.47 H 2.18-3.98 pg/mL Troponin I High Sensitivity 93 *H 4-75 ng/L Hemoglobin A1c 7.2 H 4.0-6.0 % Estimated Average Glucose (eAG) 160 H 70-126 mg/dL Total Creatine Kinase 38 21-232 U/L B-Type Natriuretic Peptide 422 H 0-100 pg/mL Procalcitonin < 0.05 L 0.05-0.5 ng/mL Thyroid Stimulating Hormone (TSH) 5.18 H 0.36-3.74 uIU/mL Coagulation Labs: Test 12/31/24 11:25 Range/Units Prothrombin Time 10.9 9.6-11.6 SEC Prothromb Time International Ratio 1.03 0.85-1.15 Activated Partial Thromboplast Time 27.1 26.3-35.5 SEC D-Dimer Quantitative (PE/DVT) 456 0-500 ng/mL Diagnostics / Radiology: 2D echocardiogram is pending Impression and Plan: New onset Atrial fibrillation with rapid ventricular response: Consider "Holiday heart syndrome" in this patient with heavy EtOH abuse [id number] stroke risk score of 1 (diabetes newly diagnosed): -advance metoprolol tartrate to 50 mg p.o. b.i.d. (chronic beta-blake therapy is generally considered safe in patients who are chronic cocaine abuser as particularly those with heart failure with multiple study showing no increase in adverse cardiovascular outcomes. Avoid beta-blockers in the setting of acute cocaine intoxication due to the risk of unopposed alpha adrenergic stimulation and coronary vasospasm) -continue plans for aspirin 81 mg p.o. daily -await results of 2D echocardiogram -patient does report prior history of loud snoring and apnea consistent with sleep apnea and will need further evaluation as an outpatient Acute presumed HFpEF: Elevated troponin to 105 in the setting of AFib with RVR and acute HFpEF: -transitioned to furosemide 20 mg p.o. daily pending 2D echocardiogram results -follow-up on 2D echocardiogram results -repeat troponin was 93 Substance abuse including alcohol, tobacco, intermittent marijuana use and recent cocaine use: -atrial fibrillation may be related to substance abuse -await results of 2D echocardiogram -he has been counseled on efforts at reducing his alcohol use and smoking cessation Probable sleep apnea: -we will require outpatient assessment and follow-up Type 2 diabetes mellitus, new diagnosis: -hemoglobin A1c of 7.2 -management per medical team and will need outpatient follow-up KENNA FLOOD Jan 01, 2025 09:16
--- NOTE | 2025-01-01 13:28 | HMCSR ---
APPROVED REPORT EXAM: Two-dimensional and M-mode echocardiogram with Doppler and color Doppler. INDICATION ICD: Atrial fibrillation with rapid ventricular response 2D Dimensions RVDd3.1 cmLVEF(%)23.8 (>50%)LVED Vol(simp.)128.0 mL IVSd0.7 (0.7-1.1cm)FS(%)11 %LVES Vol(simp.)96.0 mL LVDd6.0 (3.8-5.6cm)Ao Root(2D)3.6 (2.0-3.7cm)LVEF(%, simp.)25 % PWd1.1 (0.7-1.1cm)LVOT diam2.4 (1.8-2.4cm)LA ESV INDEX (BP)28.93 mL/m2 IVSs0.6 cmIVC diam1.6 cm LVDs5.3 (2.5-4.0cm) PWs1.3 cm Deformation Strain Apical 4-6.6 % Apical 2-4.8 % Apical 3-1.8 % Global Strain-4.4 % M-Mode Dimensions EPSS2.4 cm LA (MM)3.9 (1.6-4.0cm) Ao Root(MM)3.5 (2.0-3.7cm) Aortic Valve AoV Vmax1.1 m/[place] Peak GR4.6 mmHgLVOT Vmax0.9 m/s AoV VTI0.2 mAo Mean GR2.9 mmHgLVOT VTI0.14 m [place] (VMAX)3.85 cm2AVA (VTI) 4.1 cm2 Mitral Valve MV E Vmax96.7 cm/sDECEL Mrew737 ms P 1/2 T37 ms MVA (PHT)6.0 cm2 TDI E/E' Tuykmh12.5E/E' Fcvsrod49.9 Medial E' Peak V7.14 cm/sLateral E' Peak V8.84 cm/s Pulmonary Valve PV Vmax0.6 m/s PV Peak GR1.3 mmHg Tricuspid Valve RAP (EST) 8 mmHgRVSP8.0 mmHg Left Ventricle The left ventricle is normal size. Severely reduced GLS -4.0% Severe global hypokinesis There is norm al left ventricular wall thickness. LVEF is 20-25%. 3D volume EF 21% The LV diastolic function was un able to be assessed due to atrial arrhythmia. Right Ventricle The right ventricle is normal size. Right ventricular systolic function is mildly reduced. RV GLS -6. 0% Atria The left atrium size is normal. The right atrium is moderately dilated. Aortic Valve The aortic valve is trileaflet normal in structure. Trace of aortic regurgitation is present. There i s no aortic valvular stenosis. Mitral Valve The mitral valve is normal in structure. There is no mitral valve regurgitation noted. There is no mi tral valve stenosis. Tricuspid Valve The tricuspid valve is normal in structure. There is no tricuspid valve regurgitation noted. Pulmonic Valve The pulmonary valve is normal in structure. There is no pulmonic valvular regurgitation. Great Vessels The aortic root is normal in size. The IVC is normal in size and collapses <50% with inspiration. Pericardium There is no pericardial effusion. Other Information Quality : Technically difficult study due to body habitus Conclusion LVEF is 20-25%. 3D volume EF 21% Severely reduced GLS -4.0% Severe global hypokinesis
--- NOTE | 2025-01-01 16:45 | NUR ---
[facility] Home Pt is awake, alert, oriented X3 lives alone in an apartment. Does not have a PCP. Provided pt with Imagimod. Primary point of contact is ex- Nataly Benavides [phone]. Pt does not use any medical equipment and discharge is for home. Addendum: 01/01/25 at 1653 by SHANT BALDERAS RN CM Amended: Links added.
[2025-01-02] VITALS (8 sets, daily range): BP systolic 114–142; BP diastolic 62–95; PULSE 70–114; RESP 18; TEMP 97.8–98.9; O2SAT 96–97
[2025-01-02 05:19] LABS: IMMATURE GRANULOCYTE ABSOLUTE 0.05 K/uL (0-1); NUCLEATED RED BLOOD CELLS 0.0 % (0.0-0.19); PLATELET COUNT (AUTO) 182 K/uL (130-400); RED BLOOD CELL COUNT(AUTO) 5.07 MIL/uL (4.50-6.20); RED CELL DISTRIBUTION WIDTH 11.9 % (11.0-15.5); WHITE BLOOD COUNT (AUTO) 7.9 K/uL (4.8-10.8)
[2025-01-02 05:26] LABS: CREATININE 1.2 mg/dL (0.5-1.3); GLOMERULAR FILTR. RATE CALC 74.0 mL/min (>90); GLUCOSE,RANDOM 117.0 mg/dL (70-105); SODIUM SERUM 142.0 mmol/L (136-145); UREA NITROGEN, BLOOD 18.0 mg/dL (7-18)
[2025-01-02] MEDS: PoTASSium chloRIDE 20MEQ ER 20 MEQ ERTAB PO SCH (09:22)
[2025-01-02] MEDS: THIAMINE HCL 100 MG TABLET PO SCH (09:23)
--- NOTE | 2025-01-02 12:18 | CONS ---
HPI: This is a 49-year-old male with a history of polysubstance abuse including alcohol, marijuana, tobacco and cocaine use and suspected obstructive sleep apnea. He was admitted 12/31/2024 due to atrial fibrillation with rapid ventri cular response with ventricular rates up to the 130s. He underwent echocardiogram 01/01/2025 which showed an ejection fraction of 20-25% with severe global hypokinesis, normal-sized left atrium, without significant valvular abnormalities noted. He is currently in atrial fibrillation with ventricular rates in the 100s. Chest x-ray 12/31/2024 shows clear lungs with no pulmonary vascular congestion. White blood count 7.9, hemoglobin 16.6, hematocrit 48.6, platelets 182, creatinine 1.2, potassium 3.6, magnesium 2.30, TSH 5.18, free T4 1.03, free T3 4.47. Troponin trend: 105 --> 93. Hemoglobin A1c 7.2 consistent with diabetes. Urine drug screen was positive for cocaine and marijuana. He reports shortness or breath, orthopnea and anxiousness that occurred approximately 1 month ago lasting one night, then resolving. The symptoms returned two days prior to his admission. He denied lower extremity edema. He denies previous cardiac history. He states that the last time that he used cocaine was last Saturday. Patient History: PAST MEDICAL HISTORY: Polysubstance abuse SOCIAL HISTORY: He states that he is currently uninsured. SURGICAL HISTORY: No surgical history. Allergies: Coded Allergies: Unable to Assess (Unverified Allergy, Unknown, 12/31/24) Additional RoS: Negative with the exception of HPI Vital Signs Vital Signs 01/02/25 01/02/25 07:00 08:08 Temp 97.9 Pulse 70 Resp 18 B/P (MAP) 142/95 Pulse Ox 97 O2 Delivery Room Air O2 Flow Rate 0 FiO2 21 Appearance: Obese Eyes: EOM Normal, Normal Conjuctivae/eyelid Ear/Nose/Mouth/Throat: Landmarks WNL, Hearing WNL Neck: Symmetric, trach midline Cardiovascular: Abnormal (Irregularly irregular rhythm) Respiratory: Lungs clear Laboratory Tests Test 12/31/24 15:11 12/31/24 15:37 01/01/25 05:01 01/01/25 05:13 Range/Units Urine Opiates Screen NEGATIVE NEGATIVE Urine Barbiturates Screen NEGATIVE NEGATIVE Urine Phencyclidine Screen NEGATIVE NEGATIVE Urine Amphetamines Screen NEGATIVE NEGATIVE Urine Benzodiazepines Screen NEGATIVE NEGATIVE Urine Cocaine Screen POSITIVE NEGATIVE Urine Marijuana (THC) Screen POSITIVE NEGATIVE Troponin I High Sensitivity 93 4-75 ng/L White Blood Count 8.2 4.8-10.8 K/uL Red Blood Count 4.95 4.50-6.20 MIL/uL Hemoglobin 16.4 14.0-18.0 g/dL Hematocrit 46.6 42-54 % Mean Corpuscular Volume 94.1 79-99 fL Mean Corpuscular Hemoglobin 33.1 27.0-33.0 pg Mean Corpuscular Hemoglobin Concent 35.2 32.0-36.0 g/dL Red Cell Distribution Width 11.9 11.0-15.5 % Platelet Count 183 130-400 K/uL Mean Platelet Volume 11.2 7.5-10.5 fL Nucleated Red Blood Cells 0.0 0.0-0.19 % Sodium Level 140 136-145 mmol/L Potassium Level 3.9 3.5-5.1 mmol/L Chloride Level 103 101-111 mmol/L Carbon Dioxide Level 33 21-32 mmol/L Blood Urea Nitrogen 19 7-18 mg/dL Creatinine 1.2 0.5-1.3 mg/dL Glomerular Filtration Rate Calc 74 >90 mL/min Random Glucose 120 70-105 mg/dL Total Calcium 8.2 8.5-10.1 mg/dL Magnesium Level 2.20 1.80-2.40 mg/dL Total Bilirubin 0.6 0.2-1.0 mg/dL Aspartate Amino Transf (AST/SGOT) 44 10-37 U/L Alanine Aminotransferase (ALT/SGPT) 67 12-78 U/L Alkaline Phosphatase 82 50-136 U/L Total Protein 6.3 6.0-8.3 g/dL Albumin 3.2 3.5-5.0 g/dL Free Thyroxine (T4) Direct 1.03 0.76-1.46 ng/dL Free Triiodothyronine (T3) pg/mL 4.47 2.18-3.98 pg/mL Whole Blood Glucose 133 70-110 MG/DL Test 01/01/25 11:42 01/02/25 04:19 Range/Units Whole Blood Glucose 191 70-110 MG/DL White Blood Count 7.9 4.8-10.8 K/uL Red Blood Count 5.07 4.50-6.20 MIL/uL Hemoglobin 16.6 14.0-18.0 g/dL Hematocrit 48.6 42-54 % Mean Corpuscular Volume 95.9 79-99 fL Mean Corpuscular Hemoglobin 32.7 27.0-33.0 pg Mean Corpuscular Hemoglobin Concent 34.2 32.0-36.0 g/dL Red Cell Distribution Width 11.9 11.0-15.5 % Platelet Count 182 130-400 K/uL Mean Platelet Volume 11.4 7.5-10.5 fL Immature Granulocyte % (Auto) 0.6 0-1 % Neutrophils (%) (Auto) 51.7 40.0-77.0 % Lymphocytes (%) (Auto) 35.0 21.0-51.0 % Monocytes (%) (Auto) 7.8 3.0-13.0 % Eosinophils (%) (Auto) 3.8 0.0-8.0 % Basophils (%) (Auto) 1.1 0.0-5.0 % Neutrophils # (Auto) 4.1 1.8-7.7 K/uL Lymphocytes # (Auto) 2.8 1.0-4.8 K/uL Monocytes # (Auto) 0.6 0.1-1.0 K/uL Eosinophils # (Auto) 0.30 0.00-0.70 K/uL Basophils # (Auto) 0.09 0.00-0.20 K/uL Absolute Immature Granulocyte (auto 0.05 0-1 K/uL Nucleated Red Blood Cells 0.0 0.0-0.19 % Sodium Level 142 136-145 mmol/L Potassium Level 3.6 3.5-5.1 mmol/L Chloride Level 103 101-111 mmol/L Carbon Dioxide Level 32 21-32 mmol/L Blood Urea Nitrogen 18 7-18 mg/dL Creatinine 1.2 0.5-1.3 mg/dL Glomerular Filtration Rate Calc 74 >90 mL/min Random Glucose 117 70-105 mg/dL Total Calcium 8.4 8.5-10.1 mg/dL Magnesium Level 2.30 1.80-2.40 mg/dL ASSESSMENT: 1. New onset atrial fibrillation with rapid ventricular response. 2. Dilated cardiomyopathy, suspect tachycardia mediated. 3. Newly discovered type 2 diabetes mellitus. 4. Polysubstance abuse with alcohol, marijuana, tobacco and cocaine. PLAN: 1. He was admitted for atrial fibrillation with rapid ventricular response which was newly discovered on this admission. He denies prior cardiac history. He had mild troponin elevation in the setting of atrial fibrillation with rapid ventricular response. 2. We will titrate metoprolol tartrate to 50 mg 3 times daily due to inadequate rate control. 3. Start Eliquis 5 mg twice daily. 4. We will plan for CURTIS on 01/04/2025. If negative for left atrial appendage thrombus we will proceed with cardioversion. Initiate Multaq 400 mg twice daily after CURTIS guided cardioversion. 5. Regarding the cardiomyopathy, recommend limited echocardiogram to assess LVEF after cardioversion. If his ejection fraction remains less than 35%, we would recommend LifeVest upon discharge. BRI TRAN Jan 02, 2025 12:18
--- NOTE | 2025-01-02 13:59 | PN ---
[facility] PROGRESS NOTE Date of Service: Jan 02, 2025 Time of Service: 13:45 SUBJECTIVE: This is a 49-year-old white male with a history of alcohol abuse, tobacco abuse, probable sleep apnea, and occasional marijuana use, but otherwise without significant past medical history or a primary care provider. He presents with complaints of palpitations, shortness of breath, orthopnea, paroxysmal nocturnal dyspnea (PND), and anxiety. The patient reports that in the tension worker hours of 12/30/2024 (around 45 a.m.), he noted palpitations associated with orthopnea, PND, mild dyspnea, and anxiety. He was unable to sleep throughout the night due to these symptoms. In the morning, the palpitations and anxiety persisted, and he attempted self-treatment with aspirin and a calming supplement, but symptoms did not improve. He decided to present to the emergency department due to persistence of symptoms. He denies chest pain at rest or with exertion, fever, chills, cough, sputum production, lower extremity edema, weight changes, syncope, or recent falls. He denies any personal history of DVT or PE. He reports drinking alcohol daily, typically one bottle of whiskey, though on 12/29/2024 he states he consumed about 5 beers and 1 glass of whiskey. He smokes about one pack of cigarettes daily for at least the past five years and occasionally uses marijuana, though not recently. He denies cocaine use. He does not take any prescribed medications, only vitamin supplements. He endorses episodes of mild depression, which he self-treats at home, but denies suicidal or homicidal ideation. He does not wish to see a psychiatrist while inpatient. 01.01.2025: The patient was seen and evaluated in room 221. He initially expressed a desire to leave, stating that there was no proper communication and he was unsure about what was happening. The patient reports that he did not sleep until 5 a.m. and has been feeling anxious. On examination, there was no lower extremity edema. The patient was evaluated for signs of alcohol withdrawal, including tremors, agitation, sweating, nausea, vomiting, and visual or tactile disturbances. No signs were observed, and the patient denied these symptoms. Anxiety was present. We clearly explained the plan to the patient, including the need for further imaging (echocardiogram) and checking thyroid levels (T3 and T4) given a TSH of 5.18. The patient understood the plan, agreed to stay, and the CIWA score was 1. We will follow up with cardiology for further evaluation and continue to follow up with all pending results. 01.02.2025: The patient was seen and evaluated in room 221. The patient appears frustrated upon hearing the 2D ECHO and states that he is uninsured and will not be able to pay anything out of pocket as he is unemployed. Cardiology recommendations were discussed, we explained the possibility of emergency Medicaid coverage, and informed him that the community case manager and social service liaison will work on his case. He was also frustrated about not being able to move around. The patient expressed understanding and agrees with the plan. We will follow the recommendations of cardiology. REVIEW OF SYSTEMS CONSTITUTIONAL: Denies fevers, chills, or night sweats. No unintentional weight loss reported. NEUROLOGICAL: Denies headache, amaurosis fugax, motor weakness, sensory deficit, vertigo/spinning sensation, gait abnormalities, or tremors. ENT: No hearing loss, otalgia, otorrhea, rhinitis, rhinorrhea, hoarseness, or sore throat. CARDIOVASCULAR: Denied any chest pain. Positive for orthopnea, PND. PULMONARY: Shortness of breaths. Denied any cough GASTROINTESTINAL: Denies any type of dysphagia to either liquids or solids. Denies nausea, vomiting, pyrosis, early satiety, abdominal pain, diarrhea, constipation, or changes in stool consistency or caliber. Denies coffee-ground emesis, hematemesis, hematochezia, or melanotic stools. GENITOURINARY: Denies frequency, urgency, nocturia, hematuria or incontinence (Storage/Irritative symptoms.) Low urinary stream, straining to void, urinary intermittency or hesitancy, splitting of the voiding stream, terminal dribbling. ENDOCRINOLOGIC: Denies polyuria, polydipsia, polyphagia or heat/cold intolerances. HEMATOLOGIC: Denies thrombophilia/previous clots, or coagulopathy/bleeding disorders. ONCOLOGIC: Denies personal history of malignancy. DERMATOLOGIC: Denies rashes or pruritus. PSYCHIATRIC: Denies any suicidal or homicidal ideation. Denies hallucinations. PHYSICAL EXAM GENERAL APPEARANCE: The patient is awake, alert, and oriented, in no acute cardiopulmonary distress. NEUROLOGICAL: Motor is 5/5 in bilateral upper and lower extremities proximal to distal. No sensory deficits. HEENT: Face is symmetric. Pupils are equal and reactive. Extraocular movements are intact. NECK: Supple. No thyromegaly. No submental, submandibular, pre-/postauricular, occipital or supraclavicular lymphadenopathy. CHEST: Normal chest expansion. No Telemetry. LUNGS: Absence of any rales, rhonchi or any wheezing. CARDIOVASCULAR: Irregularly irregular rhythm. S1 and S2 normal. No appreciable rubs, murmurs or gallops. ABDOMEN: Soft, nontender, and nondistended. There is no rebound, voluntary guarding, or rigidity. : Deferred. No Jimenez. EXTREMITIES: Non-edematous and not cyanotic. No clubbing. Good capillary refill. SKIN: No skin breakdown. Vital Signs (last 8hr) Date Time Temp Pulse Resp B/P (MAP) Pulse Ox O2 Delivery O2 Flow Rate FiO2 01/02/25 11:32 98.2 78 18 127/78 98 Room Air 01/02/25 08:08 97.9 70 18 142/95 97 Room Air 01/02/25 07:00 96 Room Air* 0 21 LABS: Laboratory: Test 01/02/25 04:19 01/01/25 11:42 01/01/25 05:01 12/31/24 15:37 Range/Units White Blood Count 7.9 4.8-10.8 K/uL Red Blood Count 5.07 4.50-6.20 MIL/uL Hemoglobin 16.6 14.0-18.0 g/dL Hematocrit 48.6 42-54 % Mean Corpuscular Volume 95.9 79-99 fL Mean Corpuscular Hemoglobin 32.7 27.0-33.0 pg Mean Corpuscular Hemoglobin Concent 34.2 32.0-36.0 g/dL Red Cell Distribution Width 11.9 11.0-15.5 % Platelet Count 182 130-400 K/uL Mean Platelet Volume 11.4 H 7.5-10.5 fL Immature Granulocyte % (Auto) 0.6 0-1 % Neutrophils (%) (Auto) 51.7 40.0-77.0 % Lymphocytes (%) (Auto) 35.0 21.0-51.0 % Monocytes (%) (Auto) 7.8 3.0-13.0 % Eosinophils (%) (Auto) 3.8 0.0-8.0 % Basophils (%) (Auto) 1.1 0.0-5.0 % Neutrophils # (Auto) 4.1 1.8-7.7 K/uL Lymphocytes # (Auto) 2.8 1.0-4.8 K/uL Monocytes # (Auto) 0.6 0.1-1.0 K/uL Eosinophils # (Auto) 0.30 0.00-0.70 K/uL Basophils # (Auto) 0.09 0.00-0.20 K/uL Absolute Immature Granulocyte (auto 0.05 0-1 K/uL Nucleated Red Blood Cells 0.0 0.0-0.19 % Sodium Level 142 136-145 mmol/L Potassium Level 3.6 3.5-5.1 mmol/L Chloride Level 103 101-111 mmol/L Carbon Dioxide Level 32 21-32 mmol/L Blood Urea Nitrogen 18 7-18 mg/dL Creatinine 1.2 0.5-1.3 mg/dL Glomerular Filtration Rate Calc 74 >90 mL/min Random Glucose 117 H 70-105 mg/dL Total Calcium 8.4 L 8.5-10.1 mg/dL Magnesium Level 2.30 1.80-2.40 mg/dL Whole Blood Glucose 191 H 70-110 MG/DL Total Bilirubin 0.6 0.2-1.0 mg/dL Aspartate Amino Transf (AST/SGOT) 44 H 10-37 U/L Alanine Aminotransferase (ALT/SGPT) 67 12-78 U/L Alkaline Phosphatase 82 50-136 U/L Total Protein 6.3 6.0-8.3 g/dL Albumin 3.2 L 3.5-5.0 g/dL Free Thyroxine (T4) Direct 1.03 0.76-1.46 ng/dL Free Triiodothyronine (T3) pg/mL 4.47 H 2.18-3.98 pg/mL Troponin I High Sensitivity 93 *H 4-75 ng/L Test 12/31/24 15:11 Range/Units Urine Opiates Screen NEGATIVE NEGATIVE Urine Barbiturates Screen NEGATIVE NEGATIVE Urine Phencyclidine Screen NEGATIVE NEGATIVE Urine Amphetamines Screen NEGATIVE NEGATIVE Urine Benzodiazepines Screen NEGATIVE NEGATIVE Urine Cocaine Screen POSITIVE H NEGATIVE Urine Marijuana (THC) Screen POSITIVE H NEGATIVE Current Medications Medications (Trade) Dose Ordered Sig/Nallely Route PRN Reason Start Time Stop Time Status Last Admin Dose Admin Apixaban (EliquIS) 5 mg BID PO 01/02/25 12:30 02/01/25 12:29 01/02/25 12:53 5 MG Chlordiazepoxide HCl (LIBrium 25 MG CAP) 25 mg Q4H PRN PO ALCOHOL WITHDRAWAL PROTOCOL 12/31/24 14:30 01/07/25 14:29 01/02/25 12:56 25 MG Diazepam (VALium 5 MG/ML 2 ML SYG) 5 mg Q4H PRN IVP ALCOHOL WITHDRAWAL PROTOCOL 12/31/24 14:30 01/07/25 14:29 01/02/25 08:36 5 MG Famotidine (Pepcid 20mg Vial) 20 mg BID IV 12/31/24 21:00 01/30/25 20:59 01/02/25 09:23 20 MG Folic Acid (FOLic ACID 1 MG TABLET) 1 mg DAILY PO 01/02/25 09:00 02/01/25 08:59 01/02/25 09:22 1 MG Furosemide (LASix 20MG TAB) 20 mg DAILY PO 01/01/25 09:30 01/31/25 09:29 01/02/25 09:23 20 MG Furosemide (LASix 20MG VIAL) 20 mg Q12H IV 12/31/24 15:30 01/01/25 09:20 DC 01/01/25 02:33 20 MG Metoprolol Tartrate (loprESSOR) 25 mg TID PO 12/31/24 14:30 01/01/25 09:20 DC 01/01/25 08:17 25 MG Metoprolol Tartrate (loprESSOR) 50 mg BID PO 01/01/25 21:00 01/02/25 12:05 DC 01/02/25 09:23 50 MG Metoprolol Tartrate (loprESSOR) 50 mg TID PO 01/02/25 12:30 01/31/25 20:59 01/02/25 12:54 50 MG Pharmacy Profile Note (Pharmacy Communication) 1 each PROTOCOL PRN MISC ETOH Withdrawal Score changes 12/31/24 14:30 01/07/25 14:29 Potassium Chloride (K-Dur/Klor-Con 20meq) 20 meq BID PO 12/31/24 15:30 01/01/25 09:20 DC 01/01/25 08:10 20 MEQ Potassium Chloride (K-Dur/Klor-Con 20meq) 20 meq DAILY PO 01/02/25 09:00 02/01/25 08:59 01/02/25 09:22 20 MEQ Thiamine HCl (Vitamin B-1) 100 mg DAILY PO 01/02/25 09:00 02/01/25 08:59 01/02/25 09:23 100 MG Thiamine HCl 100 mg/Folic Acid 1 mg/Multivitamins/ Minerals 10 ml/ Sodium Chloride 1,011.2 ml @ 100 mls/ hr Q24H IV 12/31/24 14:30 01/01/25 16:50 DC 12/31/24 15:43 100 MLS/HR DIAGNOSTICS / RADIOLOGY: [place] [address] [address] IMAGING REPORT Signed PATIENT: MERCY PIERSON MR#: [id number] : 1975 SEX: M AGE: 49 LOCATION: 2D ORDER 1422 STATUS: ADM IN REPORT#: [id number] SERVICE [id number] REASON: a fib rvr ORDERING PHYSICIAN: BERNARDINO RAMIREZ MD PROCEDURE: ECHO CMP - ECHO 2-D COMPLETE APPROVED REPORT EXAM: Two-dimensional and M-mode echocardiogram with Doppler and color Doppler. INDICATION ICD: Atrial fibrillation with rapid ventricular response 2D Dimensions RVDd 3.1 cm LVEF(%) 23.8 (>50%) LVED Vol(simp.) 128.0 mL IVSd 0.7 (0.7-1.1cm) FS(%) 11 % LVES Vol(simp.) 96.0 mL LVDd 6.0 (3.8-5.6cm) Ao Root(2D) 3.6 (2.0-3.7cm) LVEF(%, simp.) 25 % PWd 1.1 (0.7-1.1cm) LVOT diam 2.4 (1.8-2.4cm) LA ESV INDEX (BP) 28.93 mL/m2 IVSs 0.6 cm IVC diam 1.6 cm LVDs 5.3 (2.5-4.0cm) PWs 1.3 cm Deformation Strain Apical 4 -6.6 % Apical 2 -4.8 % Apical 3 -1.8 % Global Strain -4.4 % M-Mode Dimensions EPSS 2.4 cm LA (MM) 3.9 (1.6-4.0cm) Ao Root(MM) 3.5 (2.0-3.7cm) Aortic Valve AoV Vmax 1.1 m/s Ao Peak GR 4.6 mmHg LVOT Vmax 0.9 m/s AoV VTI 0.2 m Ao Mean GR 2.9 mmHg LVOT VTI 0.14 m RICHMOND (VMAX) 3.85 cm2 R[place]D (VTI) 4.1 cm2 Mitral Valve MV E Vmax 96.7 cm/s DECEL Time 123 ms P 1/2 T 37 ms MVA (PHT) 6.0 cm2 TDI E/E' Medial 13.5 E/E' Lateral 10.9 Medial E' Peak V 7.14 cm/s Lateral E' Peak V 8.84 cm/s Pulmonary Valve PV Vmax 0.6 m/s PV Peak GR 1.3 mmHg Tricuspid Valve RAP (EST) 8 mmHg RVSP 8.0 mmHg Left Ventricle The left ventricle is normal size. Severely reduced GLS -4.0% Severe global hypokinesis There is normal left ventricular wall thickness. LVEF is 20-25%. 3D volume EF 21% The LV diastolic function was unable to be assessed due to atrial arrhythmia. Right Ventricle The right ventricle is normal size. Right ventricular systolic function is mildly reduced. RV GLS -6.0% Atria The left atrium size is normal. The right atrium is moderately dilated. Aortic Valve The aortic valve is trileaflet normal in structure. Trace of aortic regurgitation is present. There is no aortic valvular stenosis. Mitral Valve The mitral valve is normal in structure. There is no mitral valve regurgitation noted. There is no mitral valve stenosis. Tricuspid Valve The tricuspid valve is normal in structure. There is no tricuspid valve regurgitation noted. Pulmonic Valve The pulmonary valve is normal in structure. There is no pulmonic valvular regurgitation. Great Vessels The aortic root is normal in size. The IVC is normal in size and collapses <50% with inspiration. Pericardium There is no pericardial effusion. Other Information Quality : Technically difficult study due to body habitus Conclusion LVEF is 20-25%. 3D volume EF 21% Severely reduced GLS -4.0% Severe global hypokinesis DICTATED BY: CIPRIANO NEWTON MD DATE: 01/01/25 0753 ELECTRONICALLY SIGNED BY: CIPRIANO NEWTON MD DATE: 01/01/25 1323 ASSESSMENT: Paroxysmal AFib with RVR POA Dilated Cardiomyopathy, suspect tachycardia mediated Alcohol abuse Tobacco abuse Suspected acute CHF exacerbation likely in setting of AFib RVR Mild troponin elevation likely in setting of type 2 MT from AFib RVR Positive cocaine and marijuana in urine drug screen Newly Diagnosed Type II Diabetes Mellitus PLAN: Paroxysmal AFib with RVR POA - possible holiday heart syndrome Suspected acute CHF exacerbation likely in setting of AFib RVR, presumed HFpEF Mild troponin elevation likely in setting of type 2 MT from AFib RVR * 2D ECHO revealed 20-25% LVEF, and severe global hypokinesis * started on metoprolol 25 mg t.i.d. and advanced to metoprolol tartrate to 50 mg p.o. b.i.d. as per cardiology(chronic beta-blake therapy is generally considered safe in patients who are chronic cocaine abuser as particularly those with heart failure with multiple study showing no increase in adverse cardiovascular outcomes. Avoid beta-blockers in the setting of acute cocaine intoxication due to the risk of unopposed alpha adrenergic stimulation and coronary vasospasm) * Will initiate Eliquis 5 mg twice daily. * Plan for CURTIS on 01/04/2025. If negative for left atrial appendage thrombus, proceed with cardioversion. Start Multaq 400 mg twice daily following CURTIS-guided cardioversion. Continue Multaq upon discharge. * transitioned to furosemide 20 mg p.o. daily * consulted Cardiology. * IGNACIO VAS - 2 * 2D echocardiogram -report pending. * Mild troponin elevation (105) likely in setting of type 2 MT from AFib RVR * Will trend troponin - Trending down - 93 * BNP - 422 * D- Dimer- 456 - we will consider CT angiogram to rule out PE * Chest X- ray - normal on 12.31.2024 Dilated Cardiomyopathy * Recommend limited echocardiogram to assess LVEF after cardioversion. * If LVEF remains <35%, recommend LifeVest for primary prevention of sudden cardiac . Alcohol abuse, Tobacco abuse * Patient was counseled regarding alcohol and smoking cessation. * CIWA score - 1 * patient is started on CIWA protocol. * Will closely monitor for alcohol withdrawals. * keep potassium greater than four and magnesium greater than two * potassium - 3.9 and magnesium - 2.2 * Electrolytes will be replenished as per protocol Positive cocaine and marijuana in urine drug screen * urine drug screen positive for cocaine and marijuana * will monitor Blood pressure , Heart rate and cardiac status * denied psychiatry evaluation * Counselled the patient to avoid cocaine and marijuana use and educated on health risks and legal implications. Subclinical hypothyroidism * TSH - 5.18 * Free T3 is 4.47, Free t4 - 1.03 * follow up with repeat blood works in 6-12 months on outpatient basis Suspected obstructive sleep apnea: * snoring and apnea consistent with sleep apnea * further evaluation as an outpatient Type 2 diabetes mellitus, new diagnosis: * hemoglobin A1c of 7.2 * outpatient follow-up ATTESTATION BY PHYSICIAN I have seen and examined the patient. I reviewed the documentation, medical decision making, and treatment plan as noted by the resident provider above. I agree with the findings and plan of care. Dipak Tavarez MD, LAKSHMI MD Jan 02, 2025 13:59
[2025-01-03] VITALS (9 sets, daily range): BP systolic 98–132; BP diastolic 56–94; PULSE 55–112; RESP 18–23; TEMP 97.7–98.5; O2SAT 97–98
[2025-01-03 05:31] LABS: NUCLEATED RED BLOOD CELLS 0.0 % (0.0-0.19); PLATELET COUNT (AUTO) 164.0 K/uL (130-400); RED BLOOD CELL COUNT(AUTO) 5.09 MIL/uL (4.50-6.20); RED CELL DISTRIBUTION WIDTH 11.7 % (11.0-15.5); WHITE BLOOD COUNT (AUTO) 8.0 K/uL (4.8-10.8)
[2025-01-03 05:52] LABS: CREATININE 1.1 mg/dL (0.5-1.3); GLOMERULAR FILTR. RATE CALC 82.0 mL/min (>90); GLUCOSE,RANDOM 188.0 mg/dL (70-105); SODIUM SERUM 141.0 mmol/L (136-145); UREA NITROGEN, BLOOD 19.0 mg/dL (7-18)
--- NOTE | 2025-01-03 12:42 | PN ---
This is a 49-year-old male with a history of polysubstance abuse including alcohol, marijuana, tobacco and cocaine use and suspected obstructive sleep apnea. He was admitted 12/31/2024 due to atrial fibrillation with rapid ventricular response with ventricular rates up to the 130s. Echocardiogram 01/01/2025 showed an ejection fraction of 20-25% with normal-sized left atrium, without significant valvular abnormalities noted. Yesterday he was started on Eliquis 5 mg twice daily and metoprolol tartrate was titrated to 50 mg 3 times daily for better rate control. nHe is currently in atrial fibrillation with ventricular rates in the 90s-100s. White blood count 8.0, hemoglobin 16.6, hematocrit 48.6, platelets 164, creatinine 1.1, potassium 4.1, magnesium 2.30. Troponin trend: 105 --> 93. Hemoglobin A1c 7.2 consistent with diabetes. Urine drug screen was positive for cocaine and marijuana. I and O balance -2600 mL 01/02/2025. He reports shortness or breath and anxiety. On exam he is in no acute distress, irregularly irregular rhythm, lungs are clear to auscultation bilaterally, no lower extremity edema is noted. Assessment: 1. New onset atrial fibrillation rapid ventricular response. 2. Dilated cardiomyopathy, suspect tachycardia mediated. 3. Type 2 diabetes mellitus. 4. Anxiety. 5. Polysubstance abuse with alcohol, marijuana, tobacco and cocaine. Plan: 1. He is in persistent atrial fibrillation with adequate rate control at this time. We have discussed CURTIS guided cardioversion and he wishes to proceed. 2. If the CURTIS is negative for left atrial appendage thrombus. We will proceed with cardioversion. Recommend initiating Multaq 400 mg twice daily after cardioversion. 3. Recommend limited echocardiogram to assess his LVEF after cardioversion. If his ejection fraction remains less than 35%, we would recommend LifeVest upon discharge. 4. Continue metoprolol tartrate 50 mg 3 times daily for rate control. 5. Continue Eliquis 5 mg twice daily. 6. Of note is that the patient and his ex- were instructed to hop picker samples of Eliquis and Multaq from [facility] upon discharge. The samples of Multaq are available in the [facility]. Recommend patient assistance program for Eliquis and Multaq. Vitals/Labs Vital Signs Date Time Temp Pulse Resp B/P (MAP) Pulse Ox O2 Delivery O2 Flow Rate FiO2 01/03/25 11:00 98.1 55 23 105/76 98 Nasal Cannula 3.0 01/02/25 20:00 21 Laboratory Tests 01/03/25 04:48 BRI TRAN Jan 03, 2025 12:42
--- NOTE | 2025-01-03 15:44 | PN ---
[facility] PROGRESS NOTE Date of Service: Jan 03, 2025 Time of Service: 9:50 SUBJECTIVE: This is a 49-year-old white male with a history of alcohol abuse, tobacco abuse, probable sleep apnea, and occasional marijuana use, but otherwise without significant past medical history or a primary care provider. He presents with complaints of palpitations, shortness of breath, orthopnea, paroxysmal nocturnal dyspnea (PND), and anxiety. 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 He was unable to sleep throughout the night due to these symptoms. In the morning, the palpitations and anxiety persisted, and he attempted self-treatment with aspirin and a calming supplement, but symptoms did not improve. He decided to present to the emergency department due to persistence of symptoms. He denies chest pain at rest or with exertion, fever, chills, cough, sputum production, lower extremity edema, weight changes, s yncope, or recent falls. He denies any personal history of DVT or PE. He reports drinking alcohol daily, typically one bottle of whiskey, though on 12/29/2024 he states he consumed about 5 beers and 1 glass of whiskey. He smokes about one pack of cigarettes daily for at least the past five years and occasionally uses marijuana, though not recently. He denies cocaine use. He does not take any prescribed medications, only vitamin supplements. He endorses episodes of mild depression, which he self-treats at home, but denies suicidal or homicidal ideation. He does not wish to see a psychiatrist while inpatient. 01.01.2025: The patient was seen and evaluated in room 221. He initially expressed a desire to leave, stating that there was no proper communication and he was unsure about what was happening. The patient reports that he did not sleep until 5 a.m. and has been feeling anxious. On examination, there was no lower extremity edema. The patient was evaluated for signs of alcohol withdrawal, including tremors, agitation, sweating, nausea, vomiting, and visual or tactile disturbances. No signs were observed, and the patient denied these symptoms. Anxiety was present. We clearly explained the plan to the patient, including the need for further imaging (echocardiogram) and checking thyroid levels (T3 and T4) given a TSH of 5.18. The patient understood the plan, agreed to stay, and the CIWA score was 1. We will follow up with cardiology for further evaluation and continue to follow up with all pending results. 01.02.2025: The patient was seen and evaluated in room 221. The patient appears frustrated upon hearing the 2D ECHO and states that he is uninsured and will not be able to pay anything out of pocket as he is unemployed. Cardiology recommendations were discussed, we explained the possibility of emergency Medicaid coverage, and informed him that the hospice case manager and medical social consultant will work on his case. He was also frustrated about not being able to move around. The patient expressed understanding and agrees with the plan. We will follow the recommendations of cardiology. 01.03.2025: Patient was seen and examined in room 221. He was anxious and complained of mild shortness of breath. His requested to add anxiety medication as he was feeling anxious this morning. He is pending CURTIS tomorrow after which he may undergo cardioversion depending upon the results of CURTIS. REVIEW OF SYSTEMS CONSTITUTIONAL: Denies fevers, chills, or night sweats. No unintentional weight loss reported. NEUROLOGICAL: Denies headache, amaurosis fugax, motor weakness, sensory deficit, vertigo/spinning sensation, gait abnormalities, or tremors. ENT: No hearing loss, otalgia, otorrhea, rhinitis, rhinorrhea, hoarseness, or sore throat. CARDIOVASCULAR: Denied any chest pain. Positive for orthopnea, PND. PULMONARY: Shortness of breaths. Denied any cough GASTROINTESTINAL: Denies any type of dysphagia to either liquids or solids. Denies nausea, vomiting, pyrosis, early satiety, abdominal pain, diarrhea, constipation, or changes in stool consistency or caliber. Denies coffee-ground emesis, hematemesis, hematochezia, or melanotic stools. GENITOURINARY: Denies frequency, urgency, nocturia, hematuria or incontinence (Storage/Irritative symptoms.) Low urinary stream, straining to void, urinary intermittency or hesitancy, splitting of the voiding stream, terminal dribbling. ENDOCRINOLOGIC: Denies polyuria, polydipsia, polyphagia or heat/cold intolerances. HEMATOLOGIC: Denies thrombophilia/previous clots, or coagulopathy/bleeding disorders. ONCOLOGIC: Denies personal history of malignancy. DERMATOLOGIC: Denies rashes or pruritus. PSYCHIATRIC: Denies any suicidal or homicidal ideation. Denies hallucinations. PHYSICAL EXAM GENERAL APPEARANCE: The patient is awake, alert, and oriented, in no acute cardiopulmonary distress. NEUROLOGICAL: Motor is 5/5 in bilateral upper and lower extremities proximal to distal. No sensory deficits. HEENT: Face is symmetric. Pupils are equal and reactive. Extraocular movements are intact. NECK: Supple. No thyromegaly. No submental, submandibular, pre-/postauricular, occipital or supraclavicular lymphadenopathy. CHEST: Normal chest expansion. No Telemetry. LUNGS: Absence of any rales, rhonchi or any wheezing. CARDIOVASCULAR: Irregularly irregular rhythm. S1 and S2 normal. No appreciable rubs, murmurs or gallops. ABDOMEN: Soft, nontender, and nondistended. There is no rebound, voluntary guarding, or rigidity. : Deferred. No Jimenez. EXTREMITIES: Non-edematous and not cyanotic. No clubbing. Good capillary refill. SKIN: No skin breakdown. Vital Signs (last 8hr) Date Time Temp Pulse Resp B/P (MAP) Pulse Ox O2 Delivery O2 Flow Rate FiO2 01/03/25 11:00 98.1 55 23 105/76 98 Nasal Cannula 3.0 LABS: Laboratory: Test 01/03/25 04:48 01/02/25 04:19 Range/Units White Blood Count 8.0 4.8-10.8 K/uL Red Blood Count 5.09 4.50-6.20 MIL/uL Hemoglobin 16.6 14.0-18.0 g/dL Hematocrit 48.6 42-54 % Mean Corpuscular Volume 95.5 79-99 fL Mean Corpuscular Hemoglobin 32.6 27.0-33.0 pg Mean Corpuscular Hemoglobin Concent 34.2 32.0-36.0 g/dL Red Cell Distribution Width 11.7 11.0-15.5 % Platelet Count 164 130-400 K/uL Mean Platelet Volume 11.4 H 7.5-10.5 fL Nucleated Red Blood Cells 0.0 0.0-0.19 % Sodium Level 141 136-145 mmol/L Potassium Level 4.1 3.5-5.1 mmol/L Chloride Level 106 101-111 mmol/L Carbon Dioxide Level 27 21-32 mmol/L Blood Urea Nitrogen 19 H 7-18 mg/dL Creatinine 1.1 0.5-1.3 mg/dL Glomerular Filtration Rate Calc 82 >90 mL/min Random Glucose 188 H 70-105 mg/dL Total Calcium 8.3 L 8.5-10.1 mg/dL Immature Granulocyte % (Auto) 0.6 0-1 % Neutrophils (%) (Auto) 51.7 40.0-77.0 % Lymphocytes (%) (Auto) 35.0 21.0-51.0 % Monocytes (%) (Auto) 7.8 3.0-13.0 % Eosinophils (%) (Auto) 3.8 0.0-8.0 % Basophils (%) (Auto) 1.1 0.0-5.0 % Neutrophils # (Auto) 4.1 1.8-7.7 K/uL Lymphocytes # (Auto) 2.8 1.0-4.8 K/uL Monocytes # (Auto) 0.6 0.1-1.0 K/uL Eosinophils # (Auto) 0.30 0.00-0.70 K/uL Basophils # (Auto) 0.09 0.00-0.20 K/uL Absolute Immature Granulocyte (auto 0.05 0-1 K/uL Magnesium Level 2.30 1.80-2.40 mg/dL Current Medications Medications (Trade) Dose Ordered Sig/Nallely Route PRN Reason Start Time Stop Time Status Last Admin Dose Admin Alprazolam (XANax 0.5MG) 0.5 mg TID PRN PO ANXIETY/AGITATION 01/03/25 12:00 02/02/25 11:59 01/03/25 11:48 0.5 MG Apixaban (EliquIS) 5 mg BID PO 01/02/25 12:30 02/01/25 12:29 01/03/25 09:19 5 MG Chlordiazepoxide HCl (LIBrium 25 MG CAP) 25 mg Q4H PRN PO ALCOHOL WITHDRAWAL PROTOCOL 12/31/24 14:30 01/07/25 14:29 01/03/25 14:59 25 MG Diazepam (VALium 5 MG/ML 2 ML SYG) 5 mg Q4H PRN IVP ALCOHOL WITHDRAWAL PROTOCOL 12/31/24 14:30 01/07/25 14:29 01/03/25 09:30 5 MG Famotidine (Pepcid 20mg Vial) 20 mg BID IV 12/31/24 21:00 01/30/25 20:59 01/03/25 09:18 20 MG Folic Acid (FOLic ACID 1 MG TABLET) 1 mg DAILY PO 01/02/25 09:00 02/01/25 08:59 01/03/25 09:19 1 MG Furosemide (LASix 20MG TAB) 20 mg DAILY PO 01/01/25 09:30 01/31/25 09:29 01/03/25 09:19 20 MG Furosemide (LASix 20MG VIAL) 20 mg Q12H IV 12/31/24 15:30 01/01/25 09:20 DC 01/01/25 02:33 20 MG Metoprolol Tartrate (loprESSOR) 25 mg TID PO 12/31/24 14:30 01/01/25 09:20 DC 01/01/25 08:17 25 MG Metoprolol Tartrate (loprESSOR) 50 mg BID PO 01/01/25 21:00 01/02/25 12:05 DC 01/02/25 09:23 50 MG Metoprolol Tartrate (loprESSOR) 50 mg TID PO 01/02/25 12:30 01/31/25 20:59 01/03/25 15:00 50 MG Pharmacy Profile Note (Pharmacy Communication) 1 each PROTOCOL PRN MISC ETOH Withdrawal Score changes 12/31/24 14:30 01/07/25 14:29 Potassium Chloride (K-Dur/Klor-Con 20meq) 20 meq BID PO 12/31/24 15:30 01/01/25 09:20 DC 01/01/25 08:10 20 MEQ Potassium Chloride (K-Dur/Klor-Con 20meq) 20 meq DAILY PO 01/02/25 09:00 02/01/25 08:59 01/02/25 21:32 20 MEQ Thiamine HCl (Vitamin B-1) 100 mg DAILY PO 01/02/25 09:00 02/01/25 08:59 01/03/25 09:18 100 MG Thiamine HCl 100 mg/Folic Acid 1 mg/Multivitamins/ Minerals 10 ml/ Sodium Chloride 1,011.2 ml @ 100 mls/ hr Q24H IV 12/31/24 14:30 01/01/25 16:50 DC 12/31/24 15:43 100 MLS/HR DIAGNOSTICS / RADIOLOGY: PATIENT: MERCY PIERSON MR#: [id number] : 1975 SEX: M AGE: 49 [facility] ORDER [id number] STATUS: ADM IN REPORT#: [id number] SERVICE [id number] REASON: a fib rvr ORDERING PHYSICIAN: BERNARDINO RAMIREZ MD PROCEDURE: ECHO CMP - ECHO 2-D COMPLETE APPROVED REPORT EXAM: Two-dimensional and M-mode echocardiogram with Doppler and color Doppler. INDICATION ICD: Atrial fibrillation with rapid ventricular response 2D Dimensions RVDd 3.1 cm LVEF(%) 23.8 (>50%) LVED Vol(simp.) 128.0 mL IVSd 0.7 (0.7-1.1cm) FS(%) 11 % LVES Vol(simp.) 96.0 mL LVDd 6.0 (3.8-5.6cm) Ao Root(2D) 3.6 (2.0-3.7cm) LVEF(%, simp.) 25 % PWd 1.1 (0.7-1.1cm) LVOT diam 2.4 (1.8-2.4cm) LA ESV INDEX (BP) 28.93 mL/m2 IVSs 0.6 cm IVC diam 1.6 cm LVDs 5.3 (2.5-4.0cm) PWs 1.3 cm Deformation Strain Apical 4 -6.6 % Apical 2 -4.8 % Apical 3 -1.8 % Global Strain -4.4 % M-Mode Dimensions EPSS 2.4 cm LA (MM) 3.9 (1.6-4.0cm) Ao Root(MM) 3.5 (2.0-3.7cm) Aortic Valve AoV Vmax 1.1 m/s Ao Peak GR 4.6 mmHg LVOT Vmax 0.9 m/s AoV VTI 0.2 m Ao Mean GR 2.9 mmHg LVOT VTI 0.14 m RICHMOND (VMAX) 3.85 cm2 RICHMOND (VTI) 4.1 cm2 Mitral Valve MV E Vmax 96.7 cm/s DECEL Time 123 ms P 1/2 T 37 ms MVA (PHT) 6.0 cm2 TDI E/E' Medial 13.5 E/E' Lateral 10.9 Medial E' Peak V 7.14 cm/s Lateral E' Peak V 8.84 cm/s Pulmonary Valve PV Vmax 0.6 m/s PV Peak GR 1.3 mmHg Tricuspid Valve RAP (EST) 8 mmHg RVSP 8.0 mmHg Left Ventricle The left ventricle is normal size. Severely reduced GLS -4.0% Severe global hypokinesis There is normal left ventricular wall thickness. LVEF is 20-25%. 3D volume EF 21% The LV diastolic function was unable to be assessed due to atrial arrhythmia. Right Ventricle The right ventricle is normal size. Right ventricular systolic function is mildly reduced. RV GLS -6.0% Atria The left atrium size is normal. The right atrium is moderately dilated. Aortic Valve The aortic valve is trileaflet normal in structure. Trace of aortic regurgitation is present. There is no aortic valvular stenosis. Mitral Valve The mitral valve is normal in structure. There is no mitral valve regurgitation noted. There is no mitral valve stenosis. Tricuspid Valve The tricuspid valve is normal in structure. There is no tricuspid valve regurgitation noted. Pulmonic Valve The pulmonary valve is normal in structure. There is no pulmonic valvular regurgitation. Great Vessels The aortic root is normal in size. The IVC is normal in size and collapses <50% with inspiration. Pericardium There is no pericardial effusion. Other Information Quality : Technically difficult study due to body habitus Conclusion LVEF is 20-25%. 3D volume EF 21% Severely reduced GLS -4.0% Severe global hypokinesis DICTATED BY: CIPRIANO NEWTON MD DATE: 01/01/25 [id number] ELECTRONICALLY SIGNED BY: CIPRIANO NEWTON MD DATE: 01/01/25 0059 ASSESSMENT: Paroxysmal AFib with RVR POA Dilated Cardiomyopathy, suspect tachycardia mediated Alcohol abuse Tobacco abuse Suspected acute CHF exacerbation likely in setting of AFib RVR Mild troponin elevation likely in setting of type 2 VT from AFib RVR Positive cocaine and marijuana in urine drug screen Newly Diagnosed Type II Diabetes Mellitus PLAN: Paroxysmal AFib with RVR POA - possible holiday heart syndrome Suspected acute CHF exacerbation likely in setting of AFib RVR, presumed HFpEF Mild troponin elevation likely in setting of type 2 VT from AFib RVR * 2D ECHO revealed 20-25% LVEF, and severe global hypokinesis * started on metoprolol 25 mg t.i.d. and advanced to metoprolol tartrate to 50 mg p.o. b.i.d. as per cardiology(chronic beta-blake therapy is generally considered safe in patients who are chronic cocaine abuser as particularly those with heart failure with multiple study showing no increase in adverse cardiovascular outcomes. Avoid beta-blockers in the setting of acute cocaine intoxication due to the risk of unopposed alpha adrenergic stimulation and coronary vasospasm) * Will initiate Eliquis 5 mg twice daily. * Plan for UCRTIS on 01/04/2025. If negative for left atrial appendage thrombus, proceed with cardioversion. Start Multaq 400 mg twice daily following CURTIS-guided cardioversion. Continue Multaq upon discharge. * transitioned to furosemide 20 mg p.o. daily * consulted Cardiology. * IGNACIO VAS - 2 * 2D echocardiogram -report pending. * Mild troponin elevation (105) likely in setting of type 2 VT from AFib RVR * Will trend troponin - Trending down - 93 * BNP - 422 * D- Dimer- 456 - we will consider CT angiogram to rule out PE * Chest X- ray - normal on 12.31.2024 Dilated Cardiomyopathy * Recommend limited echocardiogram to assess LVEF after cardioversion. * If LVEF remains <35%, recommend LifeVest for primary prevention of sudden cardiac . Alcohol abuse, Tobacco abuse * Patient was counseled regarding alcohol and smoking cessation. * CIWA score - 1 * patient is started on CIWA protocol. * Will closely monitor for alcohol withdrawals. * keep potassium greater than four and magnesium greater than two * potassium - 3.9 and magnesium - 2.2 * Electrolytes will be replenished as per protocol Positive cocaine and marijuana in urine drug screen * urine drug screen positive for cocaine and marijuana * will monitor Blood pressure , Heart rate and cardiac status * denied psychiatry evaluation * Counselled the patient to avoid cocaine and marijuana use and educated on health risks and legal implications. Subclinical hypothyroidism * TSH - 5.18 * Free T3 is 4.47, Free t4 - 1.03 * follow up with repeat blood works in 6-12 months on outpatient basis Suspected obstructive sleep apnea: * snoring and apnea consistent with sleep apnea * further evaluation as an outpatient Type 2 diabetes mellitus, new diagnosis: * hemoglobin A1c of 7.2 * outpatient follow-up ATTESTATION BY PHYSICIAN I have seen and examined the patient. I reviewed the documentation, medical decision making, and treatment plan as noted by the resident provider above. I agree with the findings and plan of care. TANK LEMUS MD, MUHAMMAD H MD Jan 03, 2025 15:44
[2025-01-03] MEDS: NICOTINE 14 MG/ 24 HR PATCH TD SCH (17:26)
[2025-01-03] MEDS ORDERED: NICOTINE 14 MG/ 24 HR PATCH TD SCH (17:30)
[2025-01-04] VITALS (19 sets, daily range): BP systolic 90–136; BP diastolic 42–96; PULSE 87–128; RESP 18–28; TEMP 97–99.5; O2SAT 94–98
[2025-01-04 04:40] LABS: IMMATURE GRANULOCYTE ABSOLUTE 0.05 K/uL (0-1); NUCLEATED RED BLOOD CELLS 0.0 % (0.0-0.19); PLATELET COUNT (AUTO) 187 K/uL (130-400); RED BLOOD CELL COUNT(AUTO) 5.10 MIL/uL (4.50-6.20); RED CELL DISTRIBUTION WIDTH 12.0 % (11.0-15.5); WHITE BLOOD COUNT (AUTO) 8.9 K/uL (4.8-10.8)
[2025-01-04 04:56] LABS: ASPARTATE AMINOTRANSFERASE 18.0 U/L (10-37); CREATININE 1.2 mg/dL (0.5-1.3); GLOMERULAR FILTR. RATE CALC 74.0 mL/min (>90); GLUCOSE,RANDOM 146.0 mg/dL (70-105); SODIUM SERUM 141.0 mmol/L (136-145); TOTAL PROTEIN, SERUM 6.2 g/dL (6.0-8.3); UREA NITROGEN, BLOOD 20.0 mg/dL (7-18)
[2025-01-04] MEDS: LIDOCAINE HCL 2% VISCOUS 15 ML UDCUP PO ONE (07:56)
[2025-01-04] MEDS ORDERED: ETOMIDATE 20MG VIAL ONE (08:04)
[2025-01-04] MEDS ORDERED: LIDOCAINE PF 100MG/5ML (2%) SYRINGE 5ML ONE (08:06)
--- NOTE | 2025-01-04 08:32 | PN ---
[facility] CARDIOLOGY PROGRESS NOTE Date Patient Seen: Jan 04, 2025 Time of Visit: 08:29 Interval History: [now NSR after CURTIS with DCCV ] Physical Examination: GENERAL: [No acute distress.] HEAD: [Normal with no signs of head trauma.] EYES: [PERRLA, EOMI, conjunctiva and sclera normal.] ENT: [Hearing grossly intact, normal oropharynx.] NECK: [Supple without JVD. There is no tenderness, lymphadenopathy, or masses. No thyromegaly. Normal carotid upstrokes without bruits.] LUNGS: [Clear breath sounds bilaterally. There are right basilar rales one third of the way up the chest. No wheezes, or rhonchi.] HEART: [Normal rate and rhythm. Normal S1 and S2 without mumurs, gallop or rub.] VASC: [Peripheral pulses +2 bilaterally.] ABD: [Bowel sounds normal, soft, nontender, no masses, no organomegaly. No audible bruits.] : [Not examined] LYMPH: [No lymphadenopathy noted.] EXT: [No clubbing, cyanosis or edema.] SKIN: [No rashes or lesions noted.] NEURO: [Awake, alert, and oriented x3. No focal sensory or strength deficits noted.] Laboratory: [ ] Hematology Labs: Test 01/04/25 03:51 Range/Units White Blood Count 8.9 4.8-10.8 K/uL Red Blood Count 5.10 4.50-6.20 MIL/uL Hemoglobin 16.7 14.0-18.0 g/dL Hematocrit 49.1 42-54 % Mean Corpuscular Volume 96.3 79-99 fL Mean Corpuscular Hemoglobin 32.7 27.0-33.0 pg Mean Corpuscular Hemoglobin Concent 34.0 32.0-36.0 g/dL Red Cell Distribution Width 12.0 11.0-15.5 % Platelet Count 187 130-400 K/uL Mean Platelet Volume 11.6 H 7.5-10.5 fL Immature Granulocyte % (Auto) 0.6 0-1 % Neutrophils (%) (Auto) 52.8 40.0-77.0 % Lymphocytes (%) (Auto) 34.8 21.0-51.0 % Monocytes (%) (Auto) 7.0 3.0-13.0 % Eosinophils (%) (Auto) 3.6 0.0-8.0 % Basophils (%) (Auto) 1.2 0.0-5.0 % Neutrophils # (Auto) 4.7 1.8-7.7 K/uL Lymphocytes # (Auto) 3.1 1.0-4.8 K/uL Monocytes # (Auto) 0.6 0.1-1.0 K/uL Eosinophils # (Auto) 0.32 0.00-0.70 K/uL Basophils # (Auto) 0.11 0.00-0.20 K/uL Absolute Immature Granulocyte (auto 0.05 0-1 K/uL Nucleated Red Blood Cells 0.0 0.0-0.19 % Chemistry Labs: Test 01/04/25 03:51 Range/Units Sodium Level 141 136-145 mmol/L Potassium Level 3.9 3.5-5.1 mmol/L Chloride Level 106 101-111 mmol/L Carbon Dioxide Level 30 21-32 mmol/L Blood Urea Nitrogen 20 H 7-18 mg/dL Creatinine 1.2 0.5-1.3 mg/dL Glomerular Filtration Rate Calc 74 >90 mL/min Random Glucose 146 H 70-105 mg/dL Total Calcium 8.3 L 8.5-10.1 mg/dL Total Bilirubin 0.5 0.2-1.0 mg/dL Aspartate Amino Transf (AST/SGOT) 18 10-37 U/L Alanine Aminotransferase (ALT/SGPT) 44 12-78 U/L Alkaline Phosphatase 72 50-136 U/L Total Protein 6.2 6.0-8.3 g/dL Albumin 3.0 L 3.5-5.0 g/dL Diagnostics / Radiology: [Copy/Paste Echos/Imaging Report here] Impression and Plan: [1. New onset atrial fibrillation rapid ventricular response. 2. Dilated cardiomyopathy, suspect tachycardia mediated. 3. Type 2 diabetes mellitus. 4. Anxiety. 5. Polysubstance abuse with alcohol, marijuana, tobacco and cocaine. Plan: s/p CURTIS with DCCV and now normal sinus rhythm -multaq 200 mg bid after DCCV per EP and patient assistance program for eliquis 5 mg bid and multaq - Recommend limited echocardiogram to assess his LVEF after cardioversion. If his ejection fraction remains less than 35%, we would recommend LifeVest upon discharge. -Continue metoprolol tartrate 50 mg 3 times daily for rate control. -Continue Eliquis 5 mg twice daily. -EP spoke to patient regarding picking up samples of eliquis and multaq at [facility] as well. Maren Lyles MD ] MAREN LYLES MD Jan 04, 2025 08:32
--- NOTE | 2025-01-04 08:59 | EKG ---
[facility] Test Date: 2025-01-04 Test Time: 08:37:19 Pat Name: MERCY PIERSON Department: [facility] Room: 221 1 Gender: M Organ Assembler: Shaina DAS : 1975 Requested By: MARCIN MCKEON Order Number: [id number] Reading MD: Zain Mora Measurements Intervals [place] Rate: 88 P: 56 MO: 162 QRS: -63 QRSD: 102 T: 69 QT: 384 QTc: 464 Interpretive Statements Normal sinus rhythm Possible Left atrial enlargement Left axis deviation Nonspecific T wave abnormality Compared to ECG 12/31/2024 11:37:38 Left-axis deviation now present T-wave abnormality now present Atrial fibrillation no longer present Myocardial infarct finding no longer present Prolonged QT interval no longer present Electronically Signed On 01-05-2025 07:26:26 CDT by Zain Mora Please click the below link to view image of tracing.
[2025-01-04] MEDS: DRONEDARONE HYDROCHLORIDE 400 MG TABLET PO SCH (09:45)
--- NOTE | 2025-01-04 10:10 | NUR ---
PATIENT ALERT, AWAKE AND ORIENTED X4 WITH SIGNIFICANT OTHER AT BEDSIDE. CURTIS AND SUCCESSFUL CARDIOVERSION PROCEDURE AT BEDSIDE STARTED AT 0816 AND COMPLETED AT 0840. PLEASE REFER TO MD NOTES, ANESTHESIA NOTES, ANALGESIA FLOW SHEET AND POST PROCEDURE VS IN Jalbum.
[2025-01-04] MEDS: diazePAM 5 MG TAB PO ONE ×2 (10:28→15:22)
--- NOTE | 2025-01-04 11:27 | PN ---
[facility] PROGRESS NOTE Date of Service: Jan 04, 2025 Time of Service: 10:49 SUBJECTIVE: This is a 49-year-old white male with a history of alcohol abuse, tobacco abuse, probable sleep apnea, and occasional marijuana use, but otherwise without significant past medical history or a primary care provider. He presents with complaints of palpitations, shortness of breath, orthopnea, paroxysmal nocturnal dyspnea (PND), and anxiety. The patient reports that in the hammer runner hours of 12/30/2024 (around 45 a.m.), he noted palpitations associated with orthopnea, PND, mild dyspnea, and anxiety. He was unable to sleep throughout the night due to these symptoms. In the morning, the palpitations and anxiety persisted, and he attempted self-treatment with aspirin and a calming supplement, but symptoms did not improve. He decided to present to the emergency department due to persistence of symptoms. He denies chest pain at rest or with exertion, fever, chills, cough, sputum production, lower extremity edema, weight changes, syncope, or recent falls. He denies any personal history of DVT or PE. He reports drinking alcohol daily, typically one bottle of whiskey, though on 12/29/2024 he states he consumed about 5 beers and 1 glass of whiskey. He smokes about one pack of cigarettes daily for at least the past five years and occasionally uses marijuana, though not recently. He denies cocaine use. He does not take any prescribed medications, only vitamin supplements. He endorses episodes of mild depression, which he self-treats at home, but denies suicidal or homicidal ideation. He does not wish to see a psychiatrist while inpatient. 01.01.2025: The patient was seen and evaluated in room 221. He initially expressed a desire to leave, stating that there was no proper communication and he was unsure about what was happening. The patient reports that he did not sleep until 5 a.m. and has been feeling anxious. On examination, there was no lower extremity edema. The patient was evaluated for signs of alcohol withdrawal, including tremors, agitation, sweating, nausea, vomiting, and visual or tactile disturbances. No signs were observed, and the patient denied these symptoms. Anxiety was present. We clearly explained the plan to the patient, including the need for further imaging (echocardiogram) and checking thyroid levels (T3 and T4) given a TSH of 5.18. The patient understood the plan, agreed to stay, and the CIWA score was 1. We will follow up with cardiology for further evaluation and continue to follow up with all pending results. 01.02.2025: The patient was seen and evaluated in room 221. The patient appears frustrated upon hearing the 2D ECHO and states that he is uninsured and will not be able to pay anything out of pocket as he is unemployed. Cardiology recommendations were discussed, we explained the possibility of emergency Medicaid coverage, and informed him that the case specialist and social insurance administrator will work on his case. He was also frustrated about not being able to move around. The patient expressed understanding and agrees with the plan. We will follow the recommendations of cardiology. 01.03.2025: Patient was seen and examined in room 221. He was anxious and complained of mild shortness of breath. His requested to add anxiety medication as he was feeling anxious this morning. He is pending CURTIS tomorrow after which he may undergo cardioversion depending upon the results of CURTIS. 01.04.2025: The patient was seen and evaluated in room 221. He is anxious and was given Valium 5 mg, which he reported started working. He is s/p CURTIS with DCCV and is now in normal sinus rhythm. Transesophageal echocardiogram shows an LVEF of <20%, and limited echocardiogram is recommended to assess LVEF after cardioversion; if EF remains <35%, LifeVest placement will be recommended upon discharge. He has been prescribed Multaq 400 mg BID after cardioversion per EP, with a patient assistance program for Eliquis 5 mg BID. EP discussed with the patient regarding picking up samples of Eliquis and Multaq at [facility]. Addendum: patient complained of shortness of breath and was given albuterol Q6H. REVIEW OF SYSTEMS CONSTITUTIONAL: Denies fevers, chills, or night sweats. No unintentional weight loss reported. patient is anxious NEUROLOGICAL: Denies headache, amaurosis fugax, motor weakness, sensory deficit, vertigo/spinning sensation, gait abnormalities, or tremors. ENT: No hearing loss, otalgia, otorrhea, rhinitis, rhinorrhea, hoarseness, or sore throat. CARDIOVASCULAR: Denied any chest pain. Positive for orthopnea, PND. PULMONARY: Shortness of breaths. Denied any cough GASTROINTESTINAL: Denies any type of dysphagia to either liquids or solids. Denies nausea, vomiting, pyrosis, early satiety, abdominal pain, diarrhea, constipation, or changes in stool consistency or caliber. Denies coffee-ground emesis, hematemesis, hematochezia, or melanotic stools. GENITOURINARY: Denies frequency, urgency, nocturia, hematuria or incontinence (Storage/Irritative symptoms.) Low urinary stream, straining to void, urinary intermittency or hesitancy, splitting of the voiding stream, terminal dribbling. ENDOCRINOLOGIC: Denies polyuria, polydipsia, polyphagia or heat/cold intolerances. HEMATOLOGIC: Denies thrombophilia/previous clots, or coagulopathy/bleeding disorders. ONCOLOGIC: Denies personal history of malignancy. DERMATOLOGIC: Denies rashes or pruritus. PSYCHIATRIC: Denies any suicidal or homicidal ideation. Denies hallucinations. PHYSICAL EXAM GENERAL APPEARANCE: The patient is awake, alert, and oriented, in no acute cardiopulmonary distress. NEUROLOGICAL: Motor is 5/5 in bilateral upper and lower extremities proximal to distal. No sensory deficits. HEENT: Face is symmetric. Pupils are equal and reactive. Extraocular movements are intact. NECK: Supple. No thyromegaly. No submental, submandibular, pre-/postauricular, occipital or supraclavicular lymphadenopathy. CHEST: Normal chest expansion. No Telemetry. LUNGS: Absence of any rales, rhonchi or any wheezing. CARDIOVASCULAR: Irregularly irregular rhythm. S1 and S2 normal. No appr eciable rubs, murmurs or gallops. ABDOMEN: Soft, nontender, and nondistended. There is no rebound, voluntary guarding, or rigidity. : Deferred. No Jimenez. EXTREMITIES: Non-edematous and not cyanotic. No clubbing. Good capillary refill. SKIN: No skin breakdown. Vital Signs (last 8hr) Date Time Temp Pulse Resp B/P (MAP) Pulse Ox O2 Delivery O2 Flow Rate FiO2 01/04/25 10:36 100/63 01/04/25 09:55 101 20 122/96 97 Room Air 01/04/25 08:48 96 20 112/79 99 Nasal Cannula 2.0 01/04/25 07:00 97.7 128 28 136/73 98 Room Air 01/04/25 04:00 97.9 101 20 105/56 98 Room Air LABS: Laboratory: Test 01/04/25 03:51 Range/Units White Blood Count 8.9 4.8-10.8 K/uL Red Blood Count 5.10 4.50-6.20 MIL/uL Hemoglobin 16.7 14.0-18.0 g/dL Hematocrit 49.1 42-54 % Mean Corpuscular Volume 96.3 79-99 fL Mean Corpuscular Hemoglobin 32.7 27.0-33.0 pg Mean Corpuscular Hemoglobin Concent 34.0 32.0-36.0 g/dL Red Cell Distribution Width 12.0 11.0-15.5 % Platelet Count 187 130-400 K/uL Mean Platelet Volume 11.6 H 7.5-10.5 fL Immature Granulocyte % (Auto) 0.6 0-1 % Neutrophils (%) (Auto) 52.8 40.0-77.0 % Lymphocytes (%) (Auto) 34.8 21.0-51.0 % Monocytes (%) (Auto) 7.0 3.0-13.0 % Eosinophils (%) (Auto) 3.6 0.0-8.0 % Basophils (%) (Auto) 1.2 0.0-5.0 % Neutrophils # (Auto) 4.7 1.8-7.7 K/uL Lymphocytes # (Auto) 3.1 1.0-4.8 K/uL Monocytes # (Auto) 0.6 0.1-1.0 K/uL Eosinophils # (Auto) 0.32 0.00-0.70 K/uL Basophils # (Auto) 0.11 0.00-0.20 K/uL Absolute Immature Granulocyte (auto 0.05 0-1 K/uL Nucleated Red Blood Cells 0.0 0.0-0.19 % Sodium Level 141 136-145 mmol/L Potassium Level 3.9 3.5-5.1 mmol/L Chloride Level 106 101-111 mmol/L Carbon Dioxide Level 30 21-32 mmol/L Blood Urea Nitrogen 20 H 7-18 mg/dL Creatinine 1.2 0.5-1.3 mg/dL Glomerular Filtration Rate Calc 74 >90 mL/min Random Glucose 146 H 70-105 mg/dL Total Calcium 8.3 L 8.5-10.1 mg/dL Total Bilirubin 0.5 0.2-1.0 mg/dL Aspartate Amino Transf (AST/SGOT) 18 10-37 U/L Alanine Aminotransferase (ALT/SGPT) 44 12-78 U/L Alkaline Phosphatase 72 50-136 U/L Total Protein 6.2 6.0-8.3 g/dL Albumin 3.0 L 3.5-5.0 g/dL Current Medications Medications (Trade) Dose Ordered Sig/Nallely Route PRN Reason Start Time Stop Time Status Last Admin Dose Admin Alprazolam (XANax 0.5MG) 0.5 mg TID PRN PO ANXIETY/AGITATION 01/03/25 12:00 02/02/25 11:59 01/04/25 05:23 0.5 MG Apixaban (EliquIS) 5 mg BID PO 01/02/25 12:30 02/01/25 12:29 01/04/25 09:46 5 MG Chlordiazepoxide HCl (LIBrium 25 MG CAP) 25 mg Q4H PRN PO ALCOHOL WITHDRAWAL PROTOCOL 12/31/24 14:30 01/07/25 14:29 01/03/25 20:06 25 MG Diazepam (VALium 5 MG/ML 2 ML SYG) 5 mg Q4H PRN IVP ALCOHOL WITHDRAWAL PROTOCOL 12/31/24 14:30 01/07/25 14:29 01/04/25 04:20 5 MG Dronedarone (Multaq) 400 mg BID PO 01/04/25 09:00 02/03/25 08:59 01/04/25 09:45 400 MG Famotidine (Pepcid 20mg Vial) 20 mg BID IV 12/31/24 21:00 01/30/25 20:59 01/04/25 09:45 20 MG Folic Acid (FOLic ACID 1 MG TABLET) 1 mg DAILY PO 01/02/25 09:00 02/01/25 08:59 01/04/25 09:46 1 MG Furosemide (LASix 20MG TAB) 20 mg DAILY PO 01/01/25 09:30 01/31/25 09:29 01/03/25 09:19 20 MG Furosemide (LASix 20MG VIAL) 20 mg Q12H IV 12/31/24 15:30 01/01/25 09:20 DC 01/01/25 02:33 20 MG Metoprolol Tartrate (loprESSOR) 25 mg TID PO 12/31/24 14:30 01/01/25 09:20 DC 01/01/25 08:17 25 MG Metoprolol Tartrate (loprESSOR) 50 mg BID PO 01/01/25 21:00 01/02/25 12:05 DC 01/02/25 09:23 50 MG Metoprolol Tartrate (loprESSOR) 50 mg TID PO 01/02/25 12:30 01/31/25 20:59 01/03/25 20:05 50 MG Nicotine (Nicoderm) 14 mg DAILY TD 01/03/25 17:30 01/03/25 17:21 DC Nicotine (Nicoderm) 14 mg DAILY@1700 TD 01/03/25 17:00 02/02/25 16:59 01/03/25 17:26 14 MG Pharmacy Profile Note (Pharmacy Communication) 1 each PROTOCOL PRN MISC ETOH Withdrawal Score changes 12/31/24 14:30 01/07/25 14:29 Potassium Chloride (K-Dur/Klor-Con 20meq) 20 meq BID PO 12/31/24 15:30 01/01/25 09:20 DC 01/01/25 08:10 20 MEQ Potassium Chloride (K-Dur/Klor-Con 20meq) 20 meq DAILY PO 01/02/25 09:00 02/01/25 08:59 01/03/25 20:06 20 MEQ Thiamine HCl (Vitamin B-1) 100 mg DAILY PO 01/02/25 09:00 02/01/25 08:59 01/04/25 09:45 100 MG Thiamine HCl 100 mg/Folic Acid 1 mg/Multivitamins/ Minerals 10 ml/ Sodium Chloride 1,011.2 ml @ 100 mls/ hr Q24H IV 12/31/24 14:30 01/01/25 16:50 DC 12/31/24 15:43 100 MLS/HR DIAGNOSTICS / RADIOLOGY: EXAM: Transesophageal echocardiogram with color flow Doppler. INDICATION ICD: Persistent atrial fibrillation Reason For Test : Rule out cardiac source of emboli. PROCEDURE After obtaining informed consent, patient underwent transesophageal echo in the 221 15 mL 2% Viscous Lidocaine was given as a topical anesthetic prior to the administration of the conscious sedation. Type of Sedation: General Anesthesia Sedation was administered by please refer to medication adminsitration record. . Sedation was achieved with please refer to medication adminsitration record. intravenously. Transesophageal probe was inserted and advanced into esophagus without difficulty by Maren Lyles MD . CURTIS was performed and images were obtained, probe was removed without complications. Prior to cardioversion, of please refer to medication adminsitration record. was administered. Synchronized Cardioversion attempted: Successful Synchronized Cardioversion acheived with 200 Joules after 1 attempt(s). Rhythm following Synchronized Cardioversion: Sinus Rhythm Throughout the procedure, the blood pressure, pulse oximetry, cardiac rhythm, and rate were monitored. Left Ventricle The left ventricle is normal size. There is normal left ventricular wall thickness. LVEF is <20%. No left ventricle thrombus noted on this study. Indeterminate diastolic function. Right Ventricle The right ventricle is reduced. The right ventricular systolic function is nor mal. Atria The left atrium mildly dilated. No left atrial appendage thrombus noted. Low flow atrial appendages gradients. Spontaneous contrast noted in left atrium. There is no mass or thrombus suspected in the left atrium. Lipomatous hypertrophy of the interatrial septum is noted. No evidence of PFO/ASD by agitated saline. The right atrium is severely dilated. There is no mass or thrombus suspected in the right atrium. Aortic Valve The aortic valve is normal in structure. No aortic regurgitation is present. There is no aortic valvular stenosis. Mitral Valve The mitral valve is normal in structure. There is no mitral valve regurgitation noted. There is no mitral valve stenosis. Tricuspid Valve The tricuspid valve is normal in structure. There is no tricuspid valve regurgitation noted. Pulmonic Valve The pulmonary valve is normal in structure. There is no pulmonic valvular regurgitation. Great Vessels The aortic root is normal in size. Ascending aorta appears normal in size. Descending aorta appears normal in size. Pericardium There is no pericardial effusion. 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 and advanced to metoprolol tartrate to 50 mg p.o. T.i.d. as per cardiology(chronic beta-blake therapy is generally considered safe in patients who are chronic cocaine abuser as particularly those with heart failure with multiple study showing no increase in adverse cardiovascular outcomes. Avoid beta-blockers in the setting of acute cocaine intoxication due to the risk of unopposed alpha adrenergic stimulation and coronary vasospasm) * Eliquis 5 mg twice daily. If negative for left atrial appendage thrombus, proceed with cardioversion. Start Multaq 400 mg twice daily following CURTIS-guided cardioversion. Continue Multaq upon discharge. * transitioned to furosemide 20 mg p.o. daily * Limited echocardiogram after CURTIS -report pending. * Chest X- ray - normal on 12.31.2024 Dilated Cardiomyopathy * limited echocardiogram to assess LVEF after cardioversion. * If LVEF remains <35%, recommend LifeVest for primary prevention of sudden cardiac . Alcohol abuse, Tobacco abuse * Patient was counseled regarding alcohol and smoking cessation. * CIWA score - 1 * patient is started on CIWA protocol. * Will closely monitor for alcohol withdrawals. * keep potassium greater than four and magnesium greater than two * potassium - 3.9 * Electrolytes will be replenished as per protocol Positive cocaine and marijuana in urine drug screen * urine drug screen positive for cocaine and marijuana * will monitor Blood pressure , Heart rate and cardiac status * denied psychiatry evaluation * Counselled the patient to avoid cocaine and marijuana use and educated on health risks and legal implications. Subclinical hypothyroidism * TSH - 5.18 * Free T3 is 4.47, Free t4 - 1.03 * follow up with repeat blood works in 6-12 months on outpatient basis Suspected obstructive sleep apnea: * snoring and apnea consistent with sleep apnea * further evaluation as an outpatient Type 2 diabetes mellitus, new diagnosis: * hemoglobin A1c of 7.2 * outpatient follow-up ATTESTATION BY PHYSICIAN I have seen and examined the patient. I reviewed the documentation, medical decision making, and treatment plan as noted by the resident provider above. I agree with the findings and plan of care. Dipak Tavarez MD, LAKSHMI MD Jan 04, 2025 11:26
--- NOTE | 2025-01-04 11:40 | PRN ---
Procedure Note Date of procedure: Diagnosis: Persistent atrial fibrillation Procedure: Cardioversion Physician: Ervin Mckeon MD The patient was prepared in the room in a fasting state. Anesthesia was provided by the anesthesia service. A CURTIS was performed by Dr. Maren Lyles (see separate report). This demonstrated the absence of left atrial thrombus. Cardioversion was performed with a synchronized shock at 200 joules resulting in sinus rhythm. The patient tolerated the procedure well. Final diagnosis: Persistent atrial fibrillation, status post successful cardioversion ERVIN MCKEON MD Jan 04, 2025 11:40
--- NOTE | 2025-01-04 15:27 | NUR ---
SPOKE WITH DR. SOL Herrera MD READ 2D ECHO LIMITED, PATIENT NEEDS LIFEVEST BEFORE DC. Addendum: 01/04/25 at 1529 by GUILLERMO LONGORIA RN RN SHANT BARNETT.
--- NOTE | 2025-01-04 19:02 | HMCIMG ---
EXAM: XR Chest, 1 View. CLINICAL HISTORY: 49 year old male with shortness of breath. COMPARISON: XR Chest dated 12/31/2024. FINDINGS: LUNGS: The lungs are not clear. There is an infiltrate in the right middle lobe and right lower lobe, with a question of early pneumonia, which is more prominent compared to the prior exam. PLEURAL SPACES: No pleural effusion or pneumothorax. HEART: The heart size is abnormal, with cardiomegaly present. There is mild pulmonary vascular congestion suggesting early congestive heart failure. BONES: No acute osseous abnormality. IMPRESSION: 1. Infiltrate in the right middle lobe and right lower lobe, more prominent compared to prior exam XR Chest dated 12/31/2024, concerning for early pneumonia. 2. Cardiomegaly and mild pulmonary vascular congestion, suggesting early congestive heart failure. /[place]
--- NOTE | 2025-01-04 19:37 | NUR ---
TOYA MATAMOROS NP NOTIFIED OF CHEST XRAY RESULTS. Addendum: 01/04/25 at 1945 by GUILLERMO LONGORIA RN RN RADIOLOGY OIL RECOVERY OPERATOR PROVIDED WITH PROMOTIONAL REPRESENTATIVE PHONE NUMBER REQUESTED TO CALL PROMOTIONAL REPRESENTATIVE 1:1 WITH CHEST XRAY RESULTS.
[2025-01-05] VITALS (8 sets, daily range): BP systolic 95–113; BP diastolic 61–82; PULSE 77–93; RESP 16–20; TEMP 97.8–98.8; O2SAT 95–98
[2025-01-05 03:56] LABS: NUCLEATED RED BLOOD CELLS 0.0 % (0.0-0.19); PLATELET COUNT (AUTO) 176.0 K/uL (130-400); RED BLOOD CELL COUNT(AUTO) 4.65 MIL/uL (4.50-6.20); RED CELL DISTRIBUTION WIDTH 11.9 % (11.0-15.5); WHITE BLOOD COUNT (AUTO) 9.5 K/uL (4.8-10.8)
[2025-01-05 04:17] LABS: CREATININE 1.4 mg/dL (0.5-1.3); GLOMERULAR FILTR. RATE CALC 62.0 mL/min (>90); GLUCOSE,RANDOM 117.0 mg/dL (70-105); SODIUM SERUM 142.0 mmol/L (136-145); UREA NITROGEN, BLOOD 20.0 mg/dL (7-18)
--- NOTE | 2025-01-05 07:03 | HMCSR ---
APPROVED REPORT EXAM: LIMITED Two-dimensional and M-mode echocardiogram. INDICATION ICD: Assess LV Function 2D Dimensions LVED Vol(simp.)150.5 mL LVES Vol(simp.)127.1 mL LVEF(%, simp.)16 % Deformation Strain Apical 4-3.9 % Apical 2-3.5 % Apical 3-3.8 % Global Strain-3.7 % Left Ventricle Mildly dilated LV, 6.1cm. There is normal left ventricular wall thickness. LVEF is 16% by biplane nate lysis. Conclusion LVEF is 16% by biplane analysis.
--- NOTE | 2025-01-05 08:52 | HMCSR ---
APPROVED REPORT EXAM: Transesophageal echocardiogram with color flow Doppler. INDICATION ICD: Persistent atrial fibrillation Reason For Test : Rule out cardiac source of emboli. PROCEDURE After obtaining informed consent, patient underwent transesophageal echo in the 221 15 mL 2% Viscous Lidocaine was given as a topical anesthetic prior to the administration of the consc ious sedation. Type of Sedation: General Anesthesia Sedation was administered by please refer to medication adminsitration record. . Sedation was achieved with please refer to medication adminsitration record. intravenously. Transesophageal probe was inserted and advanced into esophagus without difficulty by Maren Lyles MD . CURTIS was performed and images were obtained, probe was removed without complications. Prior to cardioversion, of please refer to medication adminsitration record. was administered. Synchronized Cardioversion attempted: Successful Synchronized Cardioversion acheived with 200 Joules after 1 attempt(s). Rhythm following Synchronized Cardioversion: Sinus Rhythm Throughout the procedure, the blood pressure, pulse oximetry, cardiac rhythm, and rate were monitored . Left Ventricle The left ventricle is normal size. There is normal left ventricular wall thickness. LVEF is <20%. No left ventricle thrombus noted on this study. Right Ventricle The right ventricle is reduced. The right ventricular systolic function is normal. Atria The left atrium mildly dilated. No left atrial appendage thrombus noted. Low flow atrial appendages g radients. Spontaneous contrast noted in left atrium. There is no mass or thrombus suspected in the le ft atrium. Lipomatous hypertrophy of the interatrial septum is noted. No evidence of PFO/ASD by agita batsheva saline. The right atrium is severely dilated. There is no mass or thrombus suspected in the right atrium. Aortic Valve The aortic valve is normal in structure. No aortic regurgitation is present. There is no aortic valvu lar stenosis. Mitral Valve The mitral valve is normal in structure. There is no mitral valve regurgitation noted. There is no mi tral valve stenosis. Tricuspid Valve The tricuspid valve is normal in structure. There is no tricuspid valve regurgitation noted. Pulmonic Valve The pulmonary valve is normal in structure. There is no pulmonic valvular regurgitation. Great Vessels The aortic root is normal in size. Ascending aorta appears normal in size. Descending aorta appears n ormal in size. Pericardium There is no pericardial effusion. Conclusion The left ventricle is normal size. LVEF is <20%. No left ventricle thrombus noted on this study. The right ventricle is reduced. The right ventricular systolic function is normal. The left atrium mildly dilated. No left atrial appendage thrombus noted. Low flow atrial appendages g radients. Spontaneous contrast noted in left atrium. There is no mass or thrombus suspected in the left atrium. The right atrium is severely dilated. There is no mass or thrombus suspected in the right atrium. Lipomatous hypertrophy of the interatrial septum is noted. No evidence of PFO/ASD by agitated saline. No valvular pathology. There is no pericardial effusion.
[2025-01-05] MEDS ORDERED: GLUCAGON 1MG KIT 1 MG ML IM PRN (11:30)
[2025-01-05] MEDS ORDERED: DEXTROSE 50%-WATER 50 ML DISP.SYRIN IV PRN (11:30)
--- NOTE | 2025-01-05 11:33 | PN ---
[facility] CARDIOLOGY PROGRESS NOTE Cardiology progress note dictated for Ramirez Lyles MD Date Patient Seen: Jan 05, 2025 Interval History: The patient admitted to dyspnea on exertion with showering. Telemetry currently demonstrating normal sinus rhythm with heart rates in the 70s. Physical Examination: GENERAL: No acute distress. HEAD: Normal with no signs of head trauma. EYES: Conjunctiva and sclera normal. NECK: Supple without JVD. Normal carotid upstrokes without bruits. LUNGS: Crackles to bases bilaterally. HEART: Regular rate and rhythm. Normal S1 and S2 without murmurs, gallop or rub. VASC: Peripheral pulses +2 bilaterally. EXT: No clubbing, cyanosis or edema. NEURO: Awake, alert, and oriented x3. No focal neurological deficits noted. Laboratory: Hematology Labs: Test 01/05/25 03:47 01/04/25 03:51 Range/Units White Blood Count 9.5 4.8-10.8 K/uL Red Blood Count 4.65 4.50-6.20 MIL/uL Hemoglobin 15.2 14.0-18.0 g/dL Hematocrit 45.1 42-54 % Mean Corpuscular Volume 97.0 79-99 fL Mean Corpuscular Hemoglobin 32.7 27.0-33.0 pg Mean Corpuscular Hemoglobin Concent 33.7 32.0-36.0 g/dL Red Cell Distribution Width 11.9 11.0-15.5 % Platelet Count 176 130-400 K/uL Mean Platelet Volume 10.8 H 7.5-10.5 fL Nucleated Red Blood Cells 0.0 0.0-0.19 % Immature Granulocyte % (Auto) 0.6 0-1 % Neutrophils (%) (Auto) 52.8 40.0-77.0 % Lymphocytes (%) (Auto) 34.8 21.0-51.0 % Monocytes (%) (Auto) 7.0 3.0-13.0 % Eosinophils (%) (Auto) 3.6 0.0-8.0 % Basophils (%) (Auto) 1.2 0.0-5.0 % Neutrophils # (Auto) 4.7 1.8-7.7 K/uL Lymphocytes # (Auto) 3.1 1.0-4.8 K/uL Monocytes # (Auto) 0.6 0.1-1.0 K/uL Eosinophils # (Auto) 0.32 0.00-0.70 K/uL Basophils # (Auto) 0.11 0.00-0.20 K/uL Absolute Immature Granulocyte (auto 0.05 0-1 K/uL Chemistry Labs: Test 01/05/25 03:47 01/04/25 03:51 Range/Units Sodium Level 142 136-145 mmol/L Potassium Level 4.1 3.5-5.1 mmol/L Chloride Level 104 101-111 mmol/L Carbon Dioxide Level 33 H 21-32 mmol/L Blood Urea Nitrogen 20 H 7-18 mg/dL Creatinine 1.4 H 0.5-1.3 mg/dL Glomerular Filtration Rate Calc 62 >90 mL/min Random Glucose 117 H 70-105 mg/dL Total Calcium 8.1 L 8.5-10.1 mg/dL Procalcitonin < 0.05 L 0.05-0.5 ng/mL Total Bilirubin 0.5 0.2-1.0 mg/dL Aspartate Amino Transf (AST/SGOT) 18 10-37 U/L Alanine Aminotransferase (ALT/SGPT) 44 12-78 U/L Alkaline Phosphatase 72 50-136 U/L Total Protein 6.2 6.0-8.3 g/dL Albumin 3.0 L 3.5-5.0 g/dL Diagnostics / Radiology: Limited 2D echocardiogram on 01/04/2025 Conclusion LVEF is 16% by biplane analysis. DICTATED BY: KATHRYN DURÁN MD DATE: 01/04/255 Impression and Plan: 1. New onset atrial fibrillation rapid ventricular response. 2. Dilated cardiomyopathy, suspect tachycardia mediated. 3. Type 2 diabetes mellitus. 4. Anxiety. 5. Polysubstance abuse with alcohol, marijuana, tobacco and cocaine. 6. Acute systolic heart failure s/p CURTIS with DCCV on 01/04/2025 and now normal sinus rhythm -Continue Metoprolol tartrate 50 mg t.i.d. and Multaq 400 mg b.i.d. -Enroll in patient assistance program for Eliquis 5 mg b.i.d. and Multaq 400 mg b.i.d.. He has obtained samples at the [facility]. -Limited 2D echocardiogram post cardioversion with an LVEF of 16%, he is pending a LifeVest if able to pay the down payment Acute systolic heart failure Chest x-ray today with bilateral pulmonary infiltrates and pulmonary vascular congestion -Start Lasix 20mg IV BID, but patient repeat Cr is downt trended to 1.2, will discharge with 20 mg bid po lasix -Ordered outside event sales specialist to come speak to him about hear healthy diet - 1.5 L fluid restriction daily I will sign off. He may follow up with Dr Adame in one to two weeks and Dr Jenkins has been scheduled for Mar 07. DORETHA Bustamante MD [facility] Jan 05, 2025 11:33 RAMIREZ LYLES MD Jan 05, 2025 14:51
[2025-01-05] MEDS: DOXYCYCLINE HYCLATE 100 MG TABLET PO SCH (11:59)
[2025-01-05 13:46] LABS: CREATININE 1.2 mg/dL (0.5-1.3); GLOMERULAR FILTR. RATE CALC 74.0 mL/min (>90); GLUCOSE,RANDOM 124.0 mg/dL (70-105); SODIUM SERUM 139.0 mmol/L (136-145); UREA NITROGEN, BLOOD 19.0 mg/dL (7-18)
--- NOTE | 2025-01-05 15:34 | PN ---
[facility] PROGRESS NOTE Date of Service: Jan 05, 2025 Time of Service: 15:02 SUBJECTIVE: This is a 49-year-old white male with a history of alcohol abuse, tobacco abuse, probable sleep apnea, and occasional marijuana use, but otherwise without significant past medical history or a primary care provider. He presents with complaints of palpitations, shortness of breath, orthopnea, paroxysmal nocturnal dyspnea (PND), and anxiety. 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 He was unable to sleep throughout the night due to these symptoms. In the morning, the palpitations and anxiety persisted, and he attempted self-treatment with aspirin and a calming supplement, but symptoms did not improve. He decided to present to the emergency department due to persistence of symptoms. He denies chest pain at rest or with exertion, fever, chills, cough, sputum production, lower extremity edema, weight changes, syncope, or recent falls. He denies any personal history of DVT or PE. He reports drinking alcohol daily, typically one bottle of whiskey, though on 12/29/2024 he states he consumed about 5 beers and 1 glass of whiskey. He smokes about one pack of cigarettes daily for at least the past five years and occasionally uses marijuana, though not recently. He denies cocaine use. He does not take any prescribed medications, only vitamin supplements. He endorses episodes of mild depression, which he self-treats at home, but denies suicidal or homicidal ideation. He does not wish to see a psychiatrist while inpatient. 01.01.2025: The patient was seen and evaluated in room 221. He initially expressed a desire to leave, stating that there was no proper communication and he was unsure about what was happening. The patient reports that he did not sleep until 5 a.m. and has been feeling anxious. On examination, there was no lower extremity edema. The patient was evaluated for signs of alcohol withdrawal, including tremors, agitation, sweating, nausea, vomiting, and visual or tactile disturbances. No signs were observed, and the patient denied these symptoms. Anxiety was present. We clearly explained the plan to the patient, including the need for further imaging (echocardiogram) and checking thyroid levels (T3 and T4) given a TSH of 5.18. The patient understood the plan, agreed to stay, and the CIWA score was 1. We will follow up with cardiology for further evaluation and continue to follow up with all pending results. 01.02.2025: The patient was seen and evaluated in room 221. The patient appears frustrated upon hearing the 2D ECHO and states that he is uninsured and will not be able to pay anything out of pocket as he is unemployed. Cardiology recommendations were discussed, we explained the possibility of emergency Medicaid coverage, and informed him that the case liner and protective services social worker will work on his case. He was also frustrated about not being able to move around. The patient expressed understanding and agrees with the plan. We will follow the recommendations of cardiology. 01.03.2025: Patient was seen and examined in room 221. He was anxious and complained of mild shortness of breath. His requested to add anxiety medication as he was feeling anxious this morning. He is pending CURTIS tomorrow after which he may undergo cardioversion depending upon the results of CURTIS. 01.04.2025: The patient was seen and evaluated in room 221. He is anxious and was given Valium 5 mg, which he reported started working. He is s/p CURTIS with DCCV and is now in normal sinus rhythm. Transesophageal echocardiogram shows an LVEF of <20%, and limited echocardiogram is recommended to assess LVEF after cardioversion; if EF remains <35%, LifeVest placement will be recommended upon discharge. He has been prescribed Multaq 400 mg BID after cardioversion per EP, with a patient assistance program for Eliquis 5 mg BID. EP discussed with the patient regarding picking up samples of Eliquis and Multaq at [facility]. Addendum: patient complained of shortness of breath and was given albuterol Q6H. 01.05.2025: This morning, the patient was agitated about having to leave the hospital as s oon as possible and requested the counseling case manager assistance in arranging a LifeVest. The case liner has been actively working on this. Chest X-ray showed right middle and lower lobe infiltrates. He was started on doxycycline and ceftriaxone. We discussed the treatment plan with the patient and explained that he will be transitioned to oral Augmentin upon discharge. He reported feeling very anxious and received alprazolam 0.5 mg. Later in the day, he expressed frustration that no one was monitoring his fluid restriction and admitted to taking large amounts of fluids. A repeat limited echocardiogram demonstrated an ejection fraction of less than 20%, confirming the need for a LifeVest. Guideline-directed medical therapy was not initiated during this visit by cardiology. The patient does not have insurance and is unable to cover medication costs; however, he was able to obtain samples of Eliquis and Multaq from [facility]. He was also started on IV Lasix 20 mg BID by cardiology for pulmonary vascular congestion. REVIEW OF SYSTEMS CONSTITUTIONAL: Denies fevers, chills, or night sweats. No unintentional weight loss reported. patient is anxious NEUROLOGICAL: Denies headache, amaurosis fugax, motor weakness, sensory deficit, vertigo/spinning sensation, gait abnormalities, or tremors. ENT: No hearing loss, otalgia, otorrhea, rhinitis, rhinorrhea, hoarseness, or sore throat. CARDIOVASCULAR: Denied any chest pain. Positive for orthopnea, PND. PULMONARY: Shortness of breath. cough without sputum GASTROINTESTINAL: Denies any type of dysphagia to either liquids or solids. Denies nausea, vomiting, pyrosis, early satiety, abdominal pain, diarrhea, constipation, or changes in stool consistency or caliber. Denies coffee-ground emesis, hematemesis, hematochezia, or melanotic stools. GENITOURINARY: Denies frequency, urgency, nocturia, hematuria or incontinence (Storage/Irritative symptoms.) Low urinary stream, straining to void, urinary intermittency or hesitancy, splitting of the voiding stream, terminal dribbling. ENDOCRINOLOGIC: Denies polyuria, polydipsia, polyphagia or heat/cold intoleranc es. HEMATOLOGIC: Denies thrombophilia/previous clots, or coagulopathy/bleeding disorders. ONCOLOGIC: Denies personal history of malignancy. DERMATOLOGIC: Denies rashes or pruritus. PSYCHIATRIC: Denies any suicidal or homicidal ideation. Denies hallucinations. PHYSICAL EXAM GENERAL APPEARANCE: The patient is awake, alert, and oriented, in no acute cardiopulmonary distress. NEUROLOGICAL: Motor is 5/5 in bilateral upper and lower extremities proximal to distal. No sensory deficits. HEENT: Face is symmetric. Pupils are equal and reactive. Extraocular movements are intact. NECK: Supple. No thyromegaly. No submental, submandibular, pre-/postauricular, occipital or supraclavicular lymphadenopathy. CHEST: Normal chest expansion. No Telemetry. LUNGS: Absence of any rales, rhonchi or any wheezing. CARDIOVASCULAR: Irregularly irregular rhythm. S1 and S2 normal. No appreciable rubs, murmurs or gallops. ABDOMEN: Soft, nontender, and nondistended. There is no rebound, voluntary guarding, or rigidity. : Deferred. No Jimenez. EXTREMITIES: Non-edematous and not cyanotic. No clubbing. Good capillary refill. SKIN: No skin breakdown. Vital Signs (last 8hr) Date Time Temp Pulse Resp B/P (MAP) Pulse Ox O2 Delivery O2 Flow Rate FiO2 01/05/25 12:10 85 20 01/05/25 12:10 20 N/Cannula Low lpm 2.0 28 01/05/25 12:00 93 18 101/82 98 Room Air 01/05/25 07:54 97.9 92 16 95/61 98 Room Air LABS: Laboratory: Test 01/05/25 13:24 01/05/25 03:47 01/04/25 03:51 Range/Units Sodium Level 139 136-145 mmol/L Potassium Level 3.9 3.5-5.1 mmol/L Chloride Level 102 101-111 mmol/L Carbon Dioxide Level 28 21-32 mmol/L Blood Urea Nitrogen 19 H 7-18 mg/dL Creatinine 1.2 0.5-1.3 mg/dL Glomerular Filtration Rate Calc 74 >90 mL/min Random Glucose 124 H 70-105 mg/dL Total Calcium 8.7 8.5-10.1 mg/dL White Blood Count 9.5 4.8-10.8 K/uL Red Blood Count 4.65 4.50-6.20 MIL/uL Hemoglobin 15.2 14.0-18.0 g/dL Hematocrit 45.1 42-54 % Mean Corpuscular Volume 97.0 79-99 fL Mean Corpuscular Hemoglobin 32.7 27.0-33.0 pg Mean Corpuscular Hemoglobin Concent 33.7 32.0-36.0 g/dL Red Cell Distribution Width 11.9 11.0-15.5 % Platelet Count 176 130-400 K/uL Mean Platelet Volume 10.8 H 7.5-10.5 fL Nucleated Red Blood Cells 0.0 0.0-0.19 % Procalcitonin < 0.05 L 0.05-0.5 ng/mL Immature Granulocyte % (Auto) 0.6 0-1 % Neutrophils (%) (Auto) 52.8 40.0-77.0 % Lymphocytes (%) (Auto) 34.8 21.0-51.0 % Monocytes (%) (Auto) 7.0 3.0-13.0 % Eosinophils (%) (Auto) 3.6 0.0-8.0 % Basophils (%) (Auto) 1.2 0.0-5.0 % Neutrophils # (Auto) 4.7 1.8-7.7 K/uL Lymphocytes # (Auto) 3.1 1.0-4.8 K/uL Monocytes # (Auto) 0.6 0.1-1.0 K/uL Eosinophils # (Auto) 0.32 0.00-0.70 K/uL Basophils # (Auto) 0.11 0.00-0.20 K/uL Absolute Immature Granulocyte (auto 0.05 0-1 K/uL Total Bilirubin 0.5 0.2-1.0 mg/dL Aspartate Amino Transf (AST/SGOT) 18 10-37 U/L Alanine Aminotransferase (ALT/SGPT) 44 12-78 U/L Alkaline Phosphatase 72 50-136 U/L Total Protein 6.2 6.0-8.3 g/dL Albumin 3.0 L 3.5-5.0 g/dL Current Medications Medications (Trade) Dose Ordered Sig/Nallely Route PRN Reason Start Time Stop Time Status Last Admin Dose Admin Albuterol (DUOneb) 1 UDVIAL [id number] IH 01/04/25 18:00 02/03/25 17:59 01/05/25 12:02 1 UDVIAL Alprazolam (XANax 0.5MG) 0.5 mg Q6H PRN PO ANXIETY/AGITATION 01/05/25 19:30 02/02/25 19:29 Alprazolam (XANax 0.5MG) 0.5 mg TID PRN PO ANXIETY/AGITATION 01/03/25 12:00 01/05/25 13:21 DC 01/05/25 12:06 0.5 MG Apixaban (EliquIS) 5 mg BID PO 01/02/25 12:30 02/01/25 12:29 01/05/25 08:51 5 MG Ceftriaxone Sodium (ROCEphine 1G INJ) 1 gm Q24H IVPB 01/05/25 11:00 01/15/25 10:59 01/05/25 11:59 1 GM Chlordiazepoxide HCl (LIBrium 25 MG CAP) 25 mg Q4H PRN PO ALCOHOL WITHDRAWAL PROTOCOL 12/31/24 14:30 01/07/25 14:29 01/03/25 20:06 25 MG Dextrose (D50w) 50 ml AD PRN IV HYPOGLYCEMIA PROTOCOL 01/05/25 11:30 02/04/25 11:29 Diazepam (VALium 5 MG/ML 2 ML SYG) 5 mg Q4H PRN IVP ALCOHOL WITHDRAWAL PROTOCOL 12/31/24 14:30 01/07/25 14:29 01/05/25 13:26 5 MG Doxycycline Hyclate (Doxycycline Hyclate) 100 mg BID PO 01/05/25 11:00 01/15/25 10:59 01/05/25 11:59 100 MG Dronedarone (Multaq) 400 mg BID PO 01/04/25 09:00 02/03/25 08:59 01/05/25 08:52 400 MG Famotidine (Pepcid 20mg Vial) 20 mg BID IV 12/31/24 21:00 01/30/25 20:59 01/04/25 20:46 20 MG Folic Acid (FOLic ACID 1 MG TABLET) 1 mg DAILY PO 01/02/25 09:00 02/01/25 08:59 01/05/25 08:52 1 MG Furosemide (LASix 20MG TAB) 20 mg BID PO 01/05/25 21:00 02/04/25 20:59 Furosemide (LASix 20MG TAB) 20 mg DAILY PO 01/01/25 09:30 01/05/25 09:01 DC 01/05/25 08:52 20 MG Furosemide (LASix 20MG VIAL) 20 mg Q12H IV 12/31/24 15:30 01/01/25 09:20 DC 01/01/25 02:33 20 MG Furosemide (LASix 20MG VIAL) 20 mg Q12H IV 01/05/25 09:30 01/05/25 14:52 DC 01/05/25 10:08 20 MG Glucagon (Glucagon 1mg Kit) 1 mg AD PRN IM HYPOGLYCEMIA PROTOCOL 01/05/25 11:30 02/04/25 11:29 Ibuprofen (moTRIN) 600 mg Q6H PRN PO MODERATE PAIN (4-6) 01/04/25 21:00 01/05/25 10:29 DC Metoprolol Tartrate (loprESSOR) 25 mg TID PO 12/31/24 14:30 01/01/25 09:20 DC 01/01/25 08:17 25 MG Metoprolol Tartrate (loprESSOR) 50 mg BID PO 01/01/25 21:00 01/02/25 12:05 DC 01/02/25 09:23 50 MG Metoprolol Tartrate (loprESSOR) 50 mg TID PO 01/02/25 12:30 01/31/25 20:59 01/05/25 14:14 50 MG Nicotine (Nicoderm) 14 mg DAILY TD 01/03/25 17:30 01/03/25 17:21 DC Nicotine (Nicoderm) 14 mg DAILY@1700 TD 01/03/25 17:00 02/02/25 16:59 01/04/25 17:27 14 MG Pharmacy Profile Note (Pharmacy Communication) 1 each PROTOCOL PRN MISC ETOH Withdrawal Score changes 12/31/24 14:30 01/07/25 14:29 Potassium Chloride (K-Dur/Klor-Con 20meq) 20 meq BID PO 12/31/24 15:30 01/01/25 09:20 DC 01/01/25 08:10 20 MEQ Potassium Chloride (K-Dur/Klor-Con 20meq) 20 meq DAILY PO 01/02/25 09:00 02/01/25 08:59 01/05/25 08:52 20 MEQ Thiamine HCl (Vitamin B-1) 100 mg DAILY PO 01/02/25 09:00 02/01/25 08:59 01/05/25 08:52 100 MG Thiamine HCl 100 mg/Folic Acid 1 mg/Multivitamins/ Minerals 10 ml/ Sodium Chloride 1,011.2 ml @ 100 mls/ hr Q24H IV 12/31/24 14:30 01/01/25 16:50 DC 12/31/24 15:43 100 MLS/HR DIAGNOSTICS / RADIOLOGY: [place] [address] [address] IMAGING REPORT Addendum PATIENT: MERCY PIERSON MR#: [id number] : 1975 SEX: M AGE: 49 LOCATION: 2DH ORDER 1313 STATUS: ADM IN REPORT#: [id number] SERVICE 1311 REASON: sob ORDERING PHYSICIAN: DIPAK TAVAREZ MD PROCEDURE: CXR1VW - CHEST 1VW ADDENDUM REPORT ADDENDUM: Results were shared by telephone at 8:41 pm on 01-04-25 and acknowledged by FOOD EXPEDITOR Kristine No. /[place] EXAM: XR Chest, 1 View. CLINICAL HISTORY: 49 year old male with shortness of breath. COMPARISON: XR Chest dated 12/31/2024. FINDINGS: LUNGS: The lungs are not clear. There is an infiltrate in the right middle lobe and right lower lobe, with a question of early pneumonia, which is more prominent compared to the prior exam. PLEURAL SPACES: No pleural effusion or pneumothorax. HEART: The heart size is abnormal, with cardiomegaly present. There is mild pulmonary vascular congestion suggesting early congestive heart failure. BONES: No acute osseous abnormality. IMPRESSION: 1. Infiltrate in the right middle lobe and right lower lobe, more prominent compared to prior exam XR Chest dated 12/31/2024, concerning for early pneumonia. 2. Cardiomegaly and mild pulmonary vascular congestion, suggesting early congestive heart failure. /[place] DICTATED BY: NAKITA WILLSON MD DATE: 01/04/252043 ELECTRONICALLY SIGNED BY: DATE: EXAM: XR Chest, 1 View. CLINICAL HISTORY: 49 year old male with shortness of breath. COMPARISON: XR Chest dated 12/31/2024. FINDINGS: LUNGS: The lungs are not clear. There is an infiltrate in the right middle lobe and right lower lobe, with a question of early pneumonia, which is more prominent compared to the prior exam. PLEURAL SPACES: No pleural effusion or pneumothorax. HEART: The heart size is abnormal, with cardiomegaly present. There is mild pulmonary vascular congestion suggesting early congestive heart failure. BONES: No acute osseous abnormality. IMPRESSION: 1. Infiltrate in the right middle lobe and right lower lobe, more prominent compared to prior exam XR Chest dated 12/31/2024, concerning for early pneumonia. 2. Cardiomegaly and mild pulmonary vascular congestion, suggesting early congestive heart failure. /[place] DICTATED BY: NAKITA WILLSON MD DATE: 01/04/252000 ELECTRONICALLY SIGNED BY: NAKITA WILLSON MD DATE: 01/04/252000 [place] [address] IMAGING REPORT Signed PATIENT: MERCY PIERSON MR#: [id number] : 1975 SEX: M AGE: 49 LOCATION: [facility] ORDER 8 STATUS: ADM IN REPORT#: [id number] SERVICE REASON: LVEF ORDERING PHYSICIAN: RAMIREZ HOTRON MD PROCEDURE: ECHO FU LD - ECHO 2-D F/U-LTD APPROVED REPORT EXAM: LIMITED Two-dimensional and M-mode echocardiogram. INDICATION ICD: Assess LV Function 2D Dimensions LVED Vol(simp.) 150.5 mL LVES Vol(simp.) 127.1 mL LVEF(%, simp.) 16 % Deformation Strain Apical 4 -3.9 % Apical 2 -3.5 % Apical 3 -3.8 % Global Strain -3.7 % Left Ventricle Mildly dilated LV, 6.1cm. There is normal left ventricular wall thickness. LVEF is 16% by biplane analysis. Conclusion LVEF is 16% by biplane analysis. 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 and advanced to metoprolol tartrate to 50 mg p.o. T.i.d. as per cardiology(chronic beta-blake therapy is generally considered safe in patients who are chronic cocaine abuser as particularly those with heart failure with multiple study showing no increase in adverse cardiovascular outcomes. Avoid beta-blockers in the setting of acute cocaine intoxication due to the risk of unopposed alpha adrenergic stimulation and coronary vasospasm) * Eliquis 5 mg twice daily. If negative for left atrial appendage thrombus, proceed with cardioversion. Start Multaq 400 mg twice daily following CURTIS-guided cardioversion. Continue Multaq upon discharge. * transitioned to furosemide 20 mg p.o. daily * Limited echocardiogram after CURTIS -LVEF <16%, patient will need a life vest and case liner is working on the it. * Chest X- ray - normal on 12.31.2024 * patient is on IV lasix 20mg and fluid restriction Right lower and middle lobe pneumonia * Patient is started on Doxycycline and ceftriaxone ( DAY 1)- empirically to treated gram negative bacteria * Chest X- ray revealed infiltrates in right lower and middle lobes and congestion * Dilated Cardiomyopathy * limited echocardiogram to assess LVEF after cardioversion. * If LVEF remains <35%, recommend LifeVest for primary prevention of sudden cardiac . Anxiety * Given Alprazolam 0.5 mg Q6H * Valium 5 mg did not not relieve the anxiety Alcohol abuse, Tobacco abuse * Patient was counseled regarding alcohol and smoking cessation. * CIWA score - 1 * patient is started on CIWA protocol. * Will closely monitor for alcohol withdrawals. * keep potassium greater than four and magnesium greater than two * potassium - 3.9 * Electrolytes will be replenished as per protocol Positive cocaine and marijuana in urine drug screen * urine drug screen positive for cocaine and marijuana * will monitor Blood pressure , Heart rate and cardiac status * denied psychiatry evaluation * Counselled the patient to avoid cocaine and marijuana use and educated on health risks and legal implications. Subclinical hypothyroidism * TSH - 5.18 * Free T3 is 4.47, Free t4 - 1.03 * follow up with repeat blood works in 6-12 months on outpatient basis Suspected obstructive sleep apnea: * snoring and apnea consistent with sleep apnea * further evaluation as an outpatient Type 2 diabetes mellitus, new diagnosis: * hemoglobin A1c of 7.2 * outpatient follow-up ATTESTATION BY PHYSICIAN I have seen and examined the patient. I reviewed the documentation, medical decision making, and treatment plan as noted by the resident provider above. I agree with the findings and plan of care. Dipak Tavarez MD, LAKSHMI MD Jan 05, 2025 15:34
[2025-01-05] MEDS ORDERED: AMOX-426 PO (16:11)
[2025-01-05] MEDS ORDERED: IPRA3AMP24 NEB (16:11)
[2025-01-05] MEDS ORDERED: METO50TA18 PO (16:43)
[2025-01-05] MEDS ORDERED: FURO20TA6 PO (16:44)
--- NOTE | 2025-01-05 17:14 | DS ---
Discharge Summary Hospital Course Summary: The patient is a 49-year-old white male with a history of alcohol and tobacco use, probable sleep apnea, and occasional marijuana use, who presented to the emergency department on 12/30/2024 with palpitations, shortness of breath, orthopnea, paroxysmal nocturnal dyspnea, and anxiety. Symptoms began in the surgical nurse practitioner hours and persisted despite self-treatment with aspirin and a calming supplement. He denied chest pain, syncope, fever, cough, lower extremity edema, or recent falls. On initial evaluation, he was anxious but hemodynamically stable. Laboratory workup revealed a mildly elevated TSH of 5.18, prompting thyroid evaluation. The patient was assessed for alcohol withdrawal, which was negative (CIWA score 1), and he was admitted for further cardiac evaluation and management. His HbA1c is 7.2 and will need a endocrinology follow up on outpatient basis. During hospitalization, the patient underwent a 2D echocardiogram revealing a left ventricular ejection fraction of less than 20%. He was evaluated by cardiology and scheduled for a transesophageal echocardiogram with direct current cardioversion. The patient expressed frustration regarding limited mobility and financial concerns due to lack of insurance. After CURTIS and cardioversion, he converted to normal sinus rhythm. Post-procedure, cardiology recommended Multaq 400 mg twice daily and Eliquis 5 mg twice daily, which were obtained through a patient assistance program. The patient experienced mild shortness of breath and was treated with albuterol as needed. Chest X-ray demonstrated right middle and lower lobe infiltrates, for which he was started on doxycycline and ceftriaxone, with planned transition to oral Augmentin on discharge. A repeat limited echocardiogram confirmed persistently reduced ejection fraction, and a LifeVest was arranged for primary prevention of sudden cardiac . He was also started on IV Lasix 20 mg twice daily for pulmonary vascular congestion. Anxiety was managed with Valium and alprazolam as needed. The patient is discharged in stable condition with instructions to continue Mu ltaq 400 mg twice daily and Eliquis 5 mg twice daily, complete the antibiotic course, and take Lasix as directed. He should maintain a daily fluid restriction of 11.5 liters and follow a heart-healthy diet, including low salt and low saturated fat, while avoiding alcohol, tobacco, and recreational drugs. He is to wear the LifeVest at all times, removing it as directed by staff nurse icu resource team. Guideline directed medical treatment was not given by cardiology during this visit.The patient should weigh himself daily and report any sudden weight gain, swelling in the legs or ankles, worsening shortness of breath, chest pain, palpitations, dizziness, or fainting. Gradual increase in activity is allowed as tolerated, with strenuous activity avoided until cleared by cardiology. Follow- up with cardiology is scheduled within one week for reassessment and guideline- directed medical therapy. Follow up with endocrinology for the newly diagnosed Type II diabetes mellitus and Subclincal hypothyroidism. Case management will assist with insurance coverage, medication access, and outpatient support to ensure adherence to treatment and safety precautions. Pharmacy Specialist(s): CONSULTATION REPORT Name: MERCY PIERSON Acct: [id number] MR: [id number] : 1975 Admit Date: 12/31/24 KENNA FLOOD [place] [address] [place] [id number] [facility] CARDIOLOGY CONSULTATION REPORT Date Patient Seen: Dec 31, 2024 Time of Visit: 15:14 Requesting Physician: Bernardino Crowder MD Reason for Consultation: Afib RVR History of Present Illness: This is a 49-year-old white male with a past medical history of alcohol abuse, tobacco abuse and marijuana use, probable sleep apnea and otherwise no other medical history (no outpatient PCP and takes only vitamin supplements), presented to the emergency department with a 1 day history of palpitations with associated orthopnea, PND, mild dyspnea and anxiety. The patient reports that in the surgical nurse practitioner hours of 12/30/2024 approximately 4-5 a.m., he noted palpitations with the associated orthopnea, PND, mild dyspnea and anxiety. Throughout the night, he had difficulties sleeping due to his symptoms. In the morning, he noted that he was having palpitations and worsening anxiety. He took an aspirin and a calming supplement without any improvement in his symptoms, symptoms persisted throughout the day. He decided to present to the emergency department earlier this morning due to persistent symptoms. In the emergency department, he was found to be in atrial fibrillation with rapid ventricular response rate of 136 beats per minute and evidence of possible prior old inferior infarct with QS complexes in leads 3 and AVF. He admits to heavy alcohol use, difficulty quantifying other than a lot. On 12/29/2024 he admits to drinking about 5 beers throughout the day and 1 glass of whiskey. He denies any cocaine use and although he does occasionally use marijuana, he has not use marijuana recently. In the emergency department, Labs were remarkable for a WBC of 10.4, hemoglobin 19.2, hematocrit of 53.6 and a platelet count of 226. D-dimer normal at 456, sodium 139, potassium 3.8, BUN 12 and creatinine of 1.2, magnesium of 2.2. BNP of 422, I initial high sensitivity cardiac troponin of 105, hemoglobin A1c of 7.2. His chest x-ray demonstrated borderline cardiomegaly and pulmonary vascular congestion changes. Past Medical History: Alcohol abuse Tobacco abuse Intermittent marijuana use Past Surgical History: None Family History: Unknown Social History: Patient is , lives alone. Has been independent Habits: Longstanding tobacco use since age 15 currently 1 pack per day Admits to consuming alcohol beer and whiskey, difficult to quantify only repor ting drinks a lot Occasional marijuana use and denies cocaine use Home Meds: No prescription drugs Takes PPI, multivitamin men's 50+, Weldon 3 and turmeric Review of Systems: CONST: No fever, fatigue, or weight changes. EYES: No recent vision problems. ENT: No congestion, ear pain, or sore throat. C/V: Palpitations, orthopnea, PND. Dyspnea. No chest pain. RESP: No cough, congestion, wheezing or shortness of breath. GI: No abdominal pain, nausea, vomiting, constipation, or diarrhea. : No incontinence or dysuria. SKIN: No rash. NEURO: No headache, focal numbness or weakness, dizziness, or seizures. PSYCH: No history of depression or anxiety HEME: No abnormal bruising or bleeding. LYMPH: No swollen glands. Physical Examination: GENERAL: No acute distress. HEAD: Normal with no signs of head trauma. EYES: PERRLA, EOMI, conjunctiva and sclera normal. ENT: Hearing grossly intact, normal oropharynx. NECK: Supple without JVD. There is no tenderness, lymphadenopathy, or masses. No thyromegaly. Normal carotid upstrokes without bruits. LUNGS: Clear breath sounds bilaterally. No wheezes, or rhonchi. HEART: Irregularly irregular underlying rhythm with moderate to rapid ventricular response of atrial fibrillation. Normal S1 and S2 without murmurs, gallop or rub. VASC: Peripheral pulses +2 bilaterally. ABD: Bowel sounds normal, soft, nontender, no masses, no organomegaly. No audible bruits. : Not examined LYMPH: No lymphadenopathy noted. EXT: No clubbing, cyanosis or edema. SKIN: No rashes or lesions noted. NEURO: Awake, alert, and oriented x3. No focal sensory or strength deficits noted. Vital Signs (last 8hr) Date Time Temp Pulse Resp B/P (MAP) Pulse Ox O2 Delivery O2 Flow Rate FiO2 12/31/24 14:00 103 20 116/58 98 Room Air* 0 21 12/31/24 12:12 135 127/98 12/31/24 11:29 75 20 133/77 98 Room Air* 0 21 12/31/24 11:10 98.1 69 18 155/92 95 Room Air Laboratory: Hematology Labs: Test 12/31/24 11:25 Range/Units White Blood Count 10.4 4.8-10.8 K/uL Red Blood Count 5.77 4.50-6.20 MIL/uL Hemoglobin 19.2 H 14.0-18.0 g/dL Hematocrit 53.6 42-54 % Mean Corpuscular Volume 92.9 79-99 fL Mean Corpuscular Hemoglobin 33.3 H 27.0-33.0 pg Mean Corpuscular Hemoglobin Concent 35.8 32.0-36.0 g/dL Red Cell Distribution Width 11.9 11.0-15.5 % Platelet Count 226 130-400 K/uL Mean Platelet Volume 10.8 H 7.5-10.5 fL Immature Granulocyte % (Auto) 0.6 0-1 % Neutrophils (%) (Auto) 65.2 40.0-77.0 % Lymphocytes (%) (Auto) 21.8 21.0-51.0 % Monocytes (%) (Auto) 9.8 3.0-13.0 % Eosinophils (%) (Auto) 1.4 0.0-8.0 % Basophils (%) (Auto) 1.2 0.0-5.0 % Neutrophils # (Auto) 6.8 1.8-7.7 K/uL Lymphocytes # (Auto) 2.3 1.0-4.8 K/uL Monocytes # (Auto) 1.0 0.1-1.0 K/uL Eosinophils # (Auto) 0.15 0.00-0.70 K/uL Basophils # (Auto) 0.12 0.00-0.20 K/uL Absolute Immature Granulocyte (auto 0.06 0-1 K/uL Nucleated Red Blood Cells 0.0 0.0-0.19 % Chemistry Labs: Test 12/31/24 11:25 Range/Units Sodium Level 139 136-145 mmol/L Potassium Level 3.8 3.5-5.1 mmol/L Chloride Level 102 101-111 mmol/L Carbon Dioxide Level 27 21-32 mmol/L Blood Urea Nitrogen 12 7-18 mg/dL Creatinine 1.2 0.5-1.3 mg/dL Glomerular Filtration Rate Calc 74 >90 mL/min Random Glucose 140 H 70-105 mg/dL Hemoglobin A1c 7.2 H 4.0-6.0 % Estimated Average Glucose (eAG) 160 H 70-126 mg/dL Total Calcium 8.9 8.5-10.1 mg/dL Magnesium Level 2.20 1.80-2.40 mg/dL Total Creatine Kinase 38 21-232 U/L Troponin I High Sensitivity 105 *H 4-75 ng/L B-Type Natriuretic Peptide 422 H 0-100 pg/mL Procalcitonin < 0.05 L 0.05-0.5 ng/mL Coagulation Labs: Test 12/31/24 11:25 Range/Units Prothrombin Time 10.9 9.6-11.6 SEC Prothromb Time International Ratio 1.03 0.85-1.15 Activated Partial Thromboplast Time 27.1 26.3-35.5 SEC D-Dimer Quantitative (PE/DVT) 456 0-500 ng/mL Diagnostics / Radiology: Admission chest x-ray demonstrates borderline cardiomegaly and pulmonary vascular congestion changes 2D echocardiogram is pending Impression and Plan: New onset Atrial fibrillation with rapid ventricular response: Consider "Holiday heart syndrome" in this patient with heavy EtOH abuse [id number] stroke risk score of 1 (diabetes newly diagnosed): -continue with metoprolol tartrate 25 mg p.o. t.i.d. (chronic beta-blake therapy is generally considered safe in patients who are chronic cocaine abuser as particularly those with heart failure with multiple study showing no increase in adverse cardiovascular outcomes. Avoid beta-blockers in the setting of acute cocaine intoxication due to the risk of unopposed alpha adrenergic stimulation and coronary vasospasm) -continue aspirin 81 mg p.o. daily -await results of 2D echocardiogram -patient does report prior history of loud snoring and apnea consistent with sleep apnea and will need further evaluation as an outpatient Acute presumed HFpEF: Elevated troponin to 105 in the setting of AFib with RVR and acute HFpEF: -begin furosemide 20 mg IV q.12 with potassium supplementation -begin metoprolol tartrate 25 mg p.o. t.i.d. for rate control of his atrial fibrillation -follow-up on 2D echocardiogram results and repeat troponin Alcohol abuse, tobacco abuse and intermittent marijuana use: -possible alcohol-related atrial fibrillation -await results of 2D echocardiogram -he has been counseled on efforts at reducing his alcohol use and smoking cessation -toxicology is pending Probable sleep apnea: -we will require outpatient assessment and follow-up Type 2 diabetes mellitus, new diagnosis: -hemoglobin A1c of 7.2 -management per medical team and will need outpatient follow-up PHYSICIAN ATTESTATION OF PHYSICIAN GROUP ART SUPERVISOR DOCUMENTATION: I attest that I was physically present for the lauren portions of the service and evaluated the patient with the Physician Nurse Practitioner Per Diem, and I reviewed and discussed the case with the Physician Nurse Practitioner Per Diem and made modifications to the Physician Nurse Practitioner Per Diem's findings and plans of care as documented above KENNA FLOOD SHEATHER Dec 31, 2024 15:38 CAROL FERRARO MD Dec 31, 2024 18:20 Electronically Signed by: KENNA FLOOD [facility]12/31/24 1538 Electronically Co-Signed by: CAROL FERRARO MD12/31/24 1820 Procedure(s): PROCEDURE NOTE Name: MERCY PIERSON Acct: [id number] MR: [id number] : 1975 Admit Date: 12/31/24 ERVIN MCKEON MD [place] [address] [address] Procedure Note Date of procedure: Diagnosis: Persistent atrial fibrillation Procedure: Cardioversion Physician: Ervin Mckeon MD The patient was prepared in the room in a fasting state. Anesthesia was provided by the anesthesia service. A CURTIS was performed by Dr. Maren Lyles (see separate report). This demonstrated the absence of left atrial thrombus. Cardioversion was performed with a synchronized shock at 200 joules resulting in sinus rhythm. The patient tolerated the procedure well. Final diagnosis: Persistent atrial fibrillation, status post successful cardioversion ERVIN MCKEON MD Jan 04, 2025 11:40 Electronically Signed by: ERVIN MCKEON MD01/04/25 1140 Electronically Co-Signed by: [place] [address] [id number] IMAGING REPORT Signed PATIENT: MERCY PIERSON MR#: [id number] : 1975 SEX: M AGE: 49 LOCATION: [facility] ORDER 1123 STATUS: REG ER REPORT#: [id number] SERVICE 112 REASON: sob ORDERING PHYSICIAN: CRYSTAL MCGREGOR PROCEDURE: CXR1VW - CHEST 1VW CHEST 1VW REASON: sob COMPARISON: None. FINDINGS: Single view of the chest was obtained. Lungs are clear. Heart size is normal. There is no pulmonary vascular congestion. Mediastinum and bony thorax appear unremarkable. IMPRESSION: 1. Normal single view chest x-ray. DICTATED BY: ELLIOT FLOOD MD DATE: 12/31/24 114 ELECTRONICALLY SIGNED BY: ELLIOT FLOOD MD DATE: 12/31/[address] [id number] IMAGING REPORT Signed PATIENT: MERCY PIERSON MR#: [id number] : 1975 SEX: M AGE: 49 LOCATION: 2DH ORDER 1422 STATUS: ADM IN REPORT#: [id number] SERVICE 0741 REASON: a fib rvr ORDERING PHYSICIAN: BERNARDINO CROWDER MD PROCEDURE: ECHO CMP - ECHO 2-D COMPLETE APPROVED REPORT EXAM: Two-dimensional and M-mode echocardiogram with Doppler and color Doppler. INDICATION ICD: Atrial fibrillation with rapid ventricular response 2D Dimensions RVDd 3.1 cm LVEF(%) 23.8 (>50%) LVED Vol(simp.) 128.0 mL IVSd 0.7 (0.7-1.1cm) FS(%) 11 % LVES Vol(simp.) 96.0 mL LVDd 6.0 (3.8-5.6cm) Ao Root(2D) 3.6 (2.0-3.7cm) LVEF(%, simp.) 25 % PWd 1.1 (0.7-1.1cm) LVOT diam 2.4 (1.8-2.4cm) LA ESV INDEX (BP) 28.93 mL/m2 IVSs 0.6 cm IVC diam 1.6 cm LVDs 5.3 (2.5-4.0cm) PWs 1.3 cm Deformation Strain Apical 4 -6.6 % Apical 2 -4.8 % Apical 3 -1.8 % Global Strain -4.4 % M-Mode Dimensions EPSS 2.4 cm LA (MM) 3.9 (1.6-4.0cm) Ao Root(MM) 3.5 (2.0-3.7cm) Aortic Valve AoV Vmax 1.1 m/s Ao Peak GR 4.6 mmHg LVOT Vmax 0.9 m/s AoV VTI 0.2 m Ao Mean GR 2.9 mmHg LVOT VTI 0.14 m RICHMOND (VMAX) 3.85 cm2 RICHMOND (VTI) 4.1 cm2 Mitral Valve MV E Vmax 96.7 cm/s DECEL Time 123 ms P 1/2 T 37 ms MVA (PHT) 6.0 cm2 TDI E/E' Medial 13.5 E/E' Lateral 10.9 Medial E' Peak V 7.14 cm/s Lateral E' Peak V 8.84 cm/s Pulmonary Valve PV Vmax 0.6 m/s PV Peak GR 1.3 mmHg Tricuspid Valve RAP (EST) 8 mmHg RVSP 8.0 mmHg Left Ventricle The left ventricle is normal size. Severely reduced GLS -4.0% Severe global hypokinesis There is normal left ventricular wall thickness. LVEF is 20-25%. 3D volume EF 21% The LV diastolic function was unable to be assessed due to atrial arrhythmia. Right Ventricle The right ventricle is normal size. Right ventricular systolic function is mildly reduced. RV GLS -6.0% Atria The left atrium size is normal. The right atrium is moderately dilated. Aortic Valve The aortic valve is trileaflet normal in structure. Trace of aortic regurgitation is present. There is no aortic valvular stenosis. Mitral Valve The mitral valve is normal in structure. There is no mitral valve regurgitation noted. There is no mitral valve stenosis. Tricuspid Valve The tricuspid valve is normal in structure. There is no tricuspid valve regurgitation noted. Pulmonic Valve The pulmonary valve is normal in structure. There is no pulmonic valvular regurgitation. Great Vessels The aortic root is normal in size. The IVC is normal in size and collapses <50% with inspiration. Pericardium There is no pericardial effusion. Other Information Quality : Technically difficult study due to body habitus Conclusion LVEF is 20-25%. 3D volume EF 21% Severely reduced GLS -4.0% Severe global hypokinesis DICTATED BY: CIPRIANO NEWTON MD DATE: 01/01/25 0753 ELECTRONICALLY SIGNED BY: CIPRIANO NEWTON MD DATE: 01/01/25 132[address] [place] [id number] IMAGING REPORT Signed PATIENT: MERCY PIERSON MR#: [id number] : 1975 SEX: M AGE: 49 LOCATION: [facility] ORDER 2300 STATUS: ADM IN REPORT#: [id number] SERVICE 0600 REASON: Persistent atrial fibrillation ORDERING PHYSICIAN: BRI TRAN PROCEDURE: ECHO CURTIS - ECHO CURTIS--TRANSESOPHAGEAL APPROVED REPORT EXAM: Transesophageal echocardiogram with color flow Doppler. INDICATION ICD: Persistent atrial fibrillation Reason For Test : Rule out cardiac source of emboli. PROCEDURE After obtaining informed consent, patient underwent transesophageal echo in the 221 15 mL 2% Viscous Lidocaine was given as a topical anesthetic prior to the administration of the conscious sedation. Type of Sedation: General Anesthesia Sedation was administered by please refer to medication adminsitration record. . Sedation was achieved with please refer to medication adminsitration record. intravenously. Transesophageal probe was inserted and advanced into esophagus without difficulty by Maren Lyles MD . CURTIS was performed and images were obtained, probe was removed without complications. Prior to cardioversion, of please refer to medication adminsitration record. w as administered. Synchronized Cardioversion attempted: Successful Synchronized Cardioversion acheived with 200 Joules after 1 attempt(s). Rhythm following Synchronized Cardioversion: Sinus Rhythm Throughout the procedure, the blood pressure, pulse oximetry, cardiac rhythm, and rate were monitored. Left Ventricle The left ventricle is normal size. There is normal left ventricular wall thickness. LVEF is <20%. No left ventricle thrombus noted on this study. Right Ventricle The right ventricle is reduced. The right ventricular systolic function is normal. Atria The left atrium mildly dilated. No left atrial appendage thrombus noted. Low flow atrial appendages gradients. Spontaneous contrast noted in left atrium. There is no mass or thrombus suspected in the left atrium. Lipomatous hypertrophy of the interatrial septum is noted. No evidence of PFO/ASD by agitated saline. The right atrium is severely dilated. There is no mass or thrombus suspected in the right atrium. Aortic Valve The aortic valve is normal in structure. No aortic regurgitation is present. There is no aortic valvular stenosis. Mitral Valve The mitral valve is normal in structure. There is no mitral valve regurgitation noted. There is no mitral valve stenosis. Tricuspid Valve The tricuspid valve is normal in structure. There is no tricuspid valve regurgitation noted. Pulmonic Valve The pulmonary valve is normal in structure. There is no pulmonic valvular regurgitation. Great Vessels The aortic root is normal in size. Ascending aorta appears normal in size. Descending aorta appears normal in size. Pericardium There is no pericardial effusion. Conclusion The left ventricle is normal size. LVEF is <20%. No left ventricle thrombus noted on this study. The right ventricle is reduced. The right ventricular systolic function is normal. The left atrium mildly dilated. No left atrial appendage thrombus noted. Low flow atrial appendages gradients. Spontaneous contrast noted in left atrium. There is no mass or thrombus suspected in the left atrium. The right atrium is severely dilated. There is no mass or thrombus suspected in the right atrium. Lipomatous hypertrophy of the interatrial septum is noted. No evidence of PFO/ASD by agitated saline. No valvular pathology. There is no pericardial effusion. DICTATED BY: MAREN LYLES MD DATE: 01/04/25 0754 ELECTRONICALLY SIGNED BY: MAREN LYLES MD DATE: 01/05/25 0852 [place] [id number] [id number] IMAGING REPORT Signed PATIENT: MERCY PIERSON MR#: [id number] : 1975 SEX: M AGE: 49 LOCATION: 2DH ORDER 0839 STATUS: ADM IN REPORT#: [id number] SERVICE 0838 REASON: LVEF ORDERING PHYSICIAN: MAREN LYLES MD PROCEDURE: ECHO FU LD - ECHO 2-D F/U-LTD APPROVED REPORT EXAM: LIMITED Two-dimensional and M-mode echocardiogram. INDICATION ICD: Assess LV Function 2D Dimensions LVED Vol(simp.) 150.5 mL LVES Vol(simp.) 127.1 mL LVEF(%, simp.) 16 % Deformation Strain Apical 4 -3.9 % Apical 2 -3.5 % Apical 3 -3.8 % Global Strain -3.7 % Left Ventricle Mildly dilated LV, 6.1cm. There is normal left ventricular wall thickness. LVEF is 16% by biplane analysis. Conclusion LVEF is 16% by biplane analysis. DICTATED BY: KATHRYN DURÁN MD DATE: 01/04/25 1343 ELECTRONICALLY SIGNED BY: KATHRYN DURÁN MD DATE: 01/05/25 0703 [place] [address] [id number] IMAGING REPORT Addendum PATIENT: MERCY PIERSON MR#: [id number] : 1975 SEX: M AGE: 49 LOCATION: 2DH ORDER 1313 STATUS: ADM IN REPORT#: [id number] SERVICE 1311 REASON: sob ORDERING PHYSICIAN: DIPAK TAVAREZ MD PROCEDURE: CXR1VW - CHEST 1VW ADDENDUM REPORT ADDENDUM: Results were shared by telephone at 8:41 pm on 01-04-25 and acknowledged by COUNSELOR AID Kristine No. /[place]astern EXAM: XR Chest, 1 View. CLINICAL HISTORY: 49 year old male with shortness of breath. COMPARISON: XR Chest dated 12/31/2024. FINDINGS: LUNGS: The lungs are not clear. There is an infiltrate in the right middle lobe and right lower lobe, with a question of early pneumonia, which is more prominent compared to the prior exam. PLEURAL SPACES: No pleural effusion or pneumothorax. HEART: The heart size is abnormal, with cardiomegaly present. There is mild pulmonary vascular congestion suggesting early congestive heart failure. BONES: No acute osseous abnormality. IMPRESSION: 1. Infiltrate in the right middle lobe and right lower lobe, more prominent compared to prior exam XR Chest dated 12/31/2024, concerning for early pneumonia. 2. Cardiomegaly and mild pulmonary vascular congestion, suggesting early congestive heart failure. /Eastern DICTATED BY: NAKITA WILLSON MD DATE: 01/04/252043 ELECTRONICALLY SIGNED BY: DATE: EXAM: XR Chest, 1 View. CLINICAL HISTORY: 49 year old male with shortness of breath. COMPARISON: XR Chest dated 12/31/2024. FINDINGS: LUNGS: The lungs are not clear. There is an infiltrate in the right middle lobe and right lower lobe, with a question of early pneumonia, which is more prominent compared to the prior exam. PLEURAL SPACES: No pleural effusion or pneumothorax. HEART: The heart size is abnormal, with cardiomegaly present. There is mild pulmonary vascular congestion suggesting early congestive heart failure. BONES: No acute osseous abnormality. IMPRESSION: 1. Infiltrate in the right middle lobe and right lower lobe, more prominent compared to prior exam XR Chest dated 12/31/2024, concerning for early pneumonia. 2. Cardiomegaly and mild pulmonary vascular congestion, suggesting early congestive heart failure. 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 Anxiety Alcohol abuse Tobacco abuse acute CHF exacerbation in setting of AFib RVR Mild troponin elevation in setting of type 2 SD from AFib RVR Positive cocaine and marijuana in urine drug screen Newly Diagnosed Type II Diabetes Mellitus Subclinical hypothyroidism PLAN: Paroxysmal AFib with RVR POA - possible holiday heart syndrome acute CHF exacerbation likely in setting of AFib RVR, presumed HFpEF Mild troponin elevation likely in setting of type 2 SD from AFib RVR * CURTIS revealed <20 LVEF, and severe global hypokinesis on 01.04.2025 * Multaq 400 mg twice daily Right lower and middle lobe pneumonia Dilated Cardiomyopathy * LifeVest for primary prevention of sudden cardiac . Alcohol abuse, Tobacco abuse * Patient was counseled regarding alcohol and smoking cessation. Positive cocaine and marijuana in urine drug screen * Counselled the patient to avoid cocaine and marijuana use and educated on health risks and legal implications. Subclinical hypothyroidism * follow up with repeat blood works in 6-12 months on outpatient basis Suspected obstructive sleep apnea: * further evaluation as an outpatient Type 2 diabetes mellitus, new diagnosis: * outpatient follow-up Discharge Instructions: DATE OF ADMISSION: 12.30.2024 DATE OF DISCHARGE: 01.05.2025 DISPOSITION: home CONDITION: Medically stable CONSULTANTS: Dr. Lyles and Dr. Mckeon - Cardiology FOLLOW UP APPOINTMENTS: Follow up with your primary care doctor in 2 to 3 days . Follow up with cardiology in a week Follow up with endocrinology in a week sleep study as scheduled SPECIFIC INSTRUCTIONS: Abstain from drinking alcohol and using other substances Drink plenty of fluids to maintain hydration. Continue medications as prescribed Take heart healthy diet PROCEDURES: CURTIS with cardioversion IMAGING: report attached to summary MICROBIOLOGY: report attached to summary HOME MEDICATIONS: see med rec NEW MEDICATIONS: See medication reconciliation EMERGENCY INSTRUCTIONS: The patient was instructed to present to the nearest Emergency department or call 911 once their symptoms will return or worsen. Home Medications: Active Scripts Dronedarone Hydrochloride (Multaq) 400 Mg Tablet, 1 TAB PO BID for 30 Days, #60 TAB 0 Refills Prov:JAYCOB ROSENBERG MD 01/05/25 Apixaban (Eliquis) 5 Mg Tablet, 1 TAB PO BID for 30 Days, #60 TAB 0 Refills Prov:JAYCOB ROSENBERG MD 01/05/25 Furosemide (Lasix 20Mg Tab) 20 Mg Tablet, 20 MG PO BID for 30 Days, #60 TAB Prov:TANYA DAY MD 01/05/25 Metoprolol Tartrate (Metoprolol Tartrate) 50 Mg Tablet, 50 MG PO TID for 30 Days, #90 TAB Prov:ATNYA DAY MD 01/05/25 Ipratropium/Albuterol Sulfate (Iprat-Albut 0.5-3(2.5) mg/3 ml) 0.5 Mg-3 Mg (2.5 Mg Base)/3 Ml Ampul.neb, 1 VIAL NEB BID for 30 Days, #180 ML 0 Refills Prov:JAYCOB ROSENBERG MD 01/05/25 Amoxicillin/Potassium Clav (Augmentin 500-125 Tablet) 500 Mg-125 Mg Tablet, 1 TAB PO BID for 10 Days, #20 TAB 0 Refills Prov:JAYCOB ROSENBERG MD 01/05/25 Reported Medications Apixaban (Eliquis) 5 Mg Tablet, 1 TAB PO BID for 30 Days, #60 TAB 0 Refills 01/05/25 Dronedarone Hydrochloride (Multaq) 400 Mg Tablet, 400 MG PO BID, TAB 01/05/25 Time spent arranging discharge: 1-30 minutes ATTESTATION BY PHYSICIAN I have seen and examined the patient. I reviewed the documentation, medical dec ision making, and treatment plan as noted by the resident provider above. I agree with the findings and plan of care. Dipak Tavarez MD, LAKSHMI MD Jan 05, 2025 17:14
[2025-01-05] MEDS ORDERED: DRON400T7 PO ×2 (17:15→17:30)
[2025-01-05] MEDS ORDERED: APIX5TAB PO ×2 (17:15→17:30)
--- NOTE | 2025-01-05 18:23 | HMCIMG ---
EXAM: XR Chest, 1 View. CLINICAL HISTORY: COMPARISON: Compared to XR Chest dated 01/04/2025. FINDINGS: LUNGS: The lungs are not clear. There is a patchy right lower lobe infiltrate, with a question of pneumonia. PLEURAL SPACES: No pleural effusion or pneumothorax. HEART: The heart size is increased, with moderate cardiomegaly and evidence of moderate congestive heart failure. BONES: No acute osseous abnormality. IMPRESSION: 1. Patchy right lower lobe infiltrate, question of pneumonia. 2. Moderate cardiomegaly and moderate congestive heart failure. /Spiro
== END 2025-01-05 17:40 | disposition home or self-care (01) | DRG 280 ==
LOC: EDH 11:07 → EDHIP 11:08 → 2DH 18:23
PROVIDERS: ADMIT Internal Medicine; ATTEND Internal Medicine
PROC: 5A2204Z Restoration of Cardiac Rhythm, Single (ICD-10-PCS; principal; 2025-01-04)
PROC: B24BZZ4 Ultrasonography of Heart with Aorta, Transesophageal (ICD-10-PCS; 2025-01-04)
DX: I48.0 Paroxysmal atrial fibrillation (principal); I50.31 Acute diastolic (congestive) heart failure; I21.A1 Myocardial infarction type 2; J18.9 Pneumonia, unspecified organism; I42.0 Dilated cardiomyopathy; D75.1 Secondary polycythemia; E11.9 Type 2 diabetes mellitus without complications; F10.10 Alcohol abuse, uncomplicated; F17.210 Nicotine dependence, cigarettes, uncomplicated; E03.8 Other specified hypothyroidism; F14.129 Cocaine abuse with intoxication, unspecified; F32.A Depression, unspecified; E03.9 Hypothyroidism, unspecified; F41.9 Anxiety disorder, unspecified; G47.30 Sleep apnea, unspecified; I48.19 Other persistent atrial fibrillation; Z59.71 Insufficient health insurance coverage; Z59.86 Financial insecurity; Z79.01 Long term (current) use of anticoagulants; Z79.82 Long term (current) use of aspirin; Z79.899 Other long term (current) drug therapy
CPT/HCPCS: 36415; 71045; 76376; 80048; 80053; 80305; 82550; 82948; 83036; 83735; 83880; 84145; 84439; 84443; 84481; 84484; 85025; 85027; 85378; 85610; 85730; 92960; 93005; 93306; 93308; 93312; 93325; 93356; 94640; 94664; 96361; 96374; 99285; G0378; J0696; J1938; J2003; J2371; J2704; J3360; J3411; J3490; J7030